=== PATIENT | female | born 1950 | race Caucasian/White ===

== ENCOUNTER 2017-02-16 20:33 | Inpatient (IN) ==
[2017-02-16 20:47] LABS: MANUAL DIFF NEEDED? NO
[2017-02-16 20:48] LABS: BASO% 0.4 % (0.0-0.8); EOS# 0.02 X1000 (0.0-0.7); EOS% 0.3 % (0.0-10.0); HEMATOCRIT 41.3 % (37.0-47.0); HEMOGLOBIN 13.3 g/dL (12.0-16.0); LYMPH% 16.2 % (20.5-51.1); MCH 28.8 PG (27-31); MCHC 32.2 g/dL (33-37); MCV 89.4 FL (81-99); MONO# 0.41 X1000 (0.11-0.59); MPV 9.8 FL (7.4-10.4); NEUT% 77.1 % (42.2-75.2); PLT 360 X1000 (130-400); RBC 4.62 XMIL (4.2-5.4)
[2017-02-16 20:54] LABS: URINE MICRO REVIEW NEEDED? NO; URINE SOURCE CLEAN CATCH
[2017-02-16 20:57] LABS: UR EPITHELIAL CELLS <10 /HPF (<10); URINE BACTERIA 1+ /HPF; URINE RBC <10 /HPF (<10); URINE WBC TNTC /HPF (<10)
[2017-02-16 20:58] LABS: BILIRUBIN URINE SMALL (NEGATIVE); BLOOD URINE NEGATIVE (NEGATIVE); COLOR YELLOW; GLUCOSE URINE NEGATIVE (NEGATIVE); LEUKOCYTES URINE LARGE (NEGATIVE); NITRITE URINE NEGATIVE (NEGATIVE); PROTEIN URINE 70 mg/dL (NEGATIVE); SP GRAVITY URINE 1.029; TURBIDITY URINE HAZY (CLEAR); URINE CULTURE NEEDED? YES; UROBILINOGEN URINE 4 mg/dL (NORMAL)
[2017-02-16 21:04] LABS: ALBUMIN 4.4 g/dL (3.5-5.0); CALCIUM 10.1 mg/dL (8.8-10.2); POTASSIUM 4.1 mmol/L (3.5-5.1); TOTAL BILIRUBIN 0.55 mg/dL (0.20-1.00); TOTAL PROTEIN 7.8 g/dL (6.3-8.3)
--- NOTE | 2017-02-16 22:36 | PROVIDER DOCUMENTATION ---
HPI-Abdominal Pain/GI Problem - General Chief Complaint: Abdominal Pain Stated Complaint: ABD PAIN, VOMITING Time Seen by Provider: 02/16/17 21:53 Source: patient Allergies/Adverse Reactions: Patient Allergies Allergy/AdvReac Type Severity Reaction Status Date / Time aspirin [From Percodan] Allergy SHORTNESS Verified 06/13/15 06:55 OF BREATH oxycodone HCl * Allergy SHORTNESS Verified 06/13/15 06:55 [From Percodan] OF BREATH oxycodone terephthalate * Allergy SHORTNESS Verified 06/13/15 06:55 [From Percodan] OF BREATH Home Medications: Home Medication List Medication Instructions Recorded Confirmed Last Taken Type Pantoprazole Sodium 40 mg PO DAILY 06/13/15 02/16/17 02/16/17 07:00 History Paroxetine HCl 40 mg PO DAILY 06/13/15 02/16/17 02/16/17 07:00 History Thyroxine 100 mcg PO DAILY 06/13/15 02/16/17 02/16/17 07:00 History Iron,Carbonyl/Ascorbic Acid [Fe C 1 each PO DAILY #30 tablet 06/15/15 02/16/17 02/16/17 07:00 Rx Tablet] Sucralfate [Carafate] 1 gm PO TID #90 tablet 06/15/15 02/16/17 02/16/17 Rx - History of Present Illness-ABD Nature of Presenting Problems: 66 YOwf UNDERWENT GASTRIC BY PASS (Rahul-En-y) [place] [address] CAESAR JENKINS. tHE SUBSEQUENTLY LOST 140 LBS AND DID WELL UNTIL ABOUT 48 HOURS AGO WHEN SHE DEVELOPED SEVERE , CRAMPING ABDOMINAL AND HAS BEEN UNABLE TO EAT OR KEEP FLUIDS DOWN. Abdominal Pain Onset Location: reports: RUQ Pain Radiation: reports: no radiation Quality of Pain: reports: cramping Severity in ED: reports: moderate Onset/Duration: reports: 2 days ago Timing: reports: still present Activities at Onset: reports: none Exposure to sick contacts?: No Modifying Factors: improves with: nothing Associated Symptoms: reports: anxiety, loss of appetite. denies: constipation Last BM: unsure Review of Systems - Adult - REVIEW OF SYSTEMS - ADULT Constitutional: reports: no symptoms reported, weight loss Eyes: reports: no symptoms reported Ears, Nose, Mouth & Throat: reports: no symptoms reported Cardiovascular: reports: no symptoms reported Respiratory: reports: no symptoms reported Gastrointestinal: reports: see HPI, other (S/P BOSSMAN) Genitourinary: reports: dysuria Musculoskeletal: reports: no symptoms reported Integumentary: reports: no symptoms reported Neurological: reports: no symptoms reported Psychiatric: reports: no symptoms reported Endocrine: reports: no symptoms reported Hematologic/Lymphatic: reports: no symptoms reported Allergic/Immunologic: reports: no symptoms reported Past History - Adult - PAST MEDICAL HISTORY-ADULT Review of Records: reports: Old Records Reviewed, Nursing Assessment Review, Medications Reviewed Major Childhood Illnesses: reports: denies history Cardiovascular: reports: HTN Respiratory: reports: asthma Gastrointestinal: reports: denies history, GERD, ulcer (at gastric bypass) Genitourinary: reports: denies history Musculoskeletal: reports: denies history Neurological: reports: denies history Psychiatric: reports: denies history Endocrine/Immune: reports: thyroid disorder - PRIOR SURGERIES/PROCEDURES Surgical/Procedure History: reports: cholecystectomy, hysterectomy, orthopedic ( extremity), gastric bypass, other (breast bx) Physical Exam-General - PHYSICAL EXAM-ADULT Initial Vital Signs Reviewed: Yes - CONSTITUTIONAL General Appearance: cachetic - EYES Eyes: PERRL/EOMI, pink conjunctivae - HEAD, EARS, NOSE, MOUTH & THROAT HENMT: normocephalic/atraumatic, moist mucous membranes, normal ENT inspection - NECK Neck: non-tender, full range of motion - RESPIRATORY Respiratory: chest non-tender, lungs clear, normal breath sounds, no pleuratic chest pain - CARDIOVASCULAR Cardiovascular: normal peripheral pulses, regular rate, rhythm, no edema - GASTROINTESTINAL (ABDOMEN) Abdominal Exam: non tender, soft, guarding, prominent aortic pulsations. negative: normal bowel sounds - LYMPHATIC Lymphatic: no adenopathy - MUSCULOSKELETAL Back Exam: normal inspection, no CVA tenderness Peripheral Pulses: radial (R): 3+, radial (L): 3+ - SKIN Integumentary: normal color, normal turgor - NEUROLOGIC Neurologic: grossly normal - PSYCHIATRIC Psych/Mental Status: normal mood/affect Progress - PLAN OF CARE/RESULTS Progress/Plan/Lab Results: Vital Signs - 8 hr 02/16/17 20:35 Temperature 98.4 F Pulse Rate 79 Respiratory Rate 16 Blood Pressure 148/98 O2 Sat by Pulse Oximetry 99 Laboratory Results - last 24 hr 02/16/17 02/16/17 02/16/17 20:40 20:40 20:45 WBC 6.81 RBC 4.62 Hgb 13.3 Hct 41.3 MCV 89.4 MCH 28.8 MCHC 32.2 L RDW Std Deviation 14.6 H Plt Count 360 MPV 9.8 Immature Gran % (Auto) 0.0 Neut % (Auto) 77.1 H Lymph % (Auto) 16.2 L [place] % (Auto) 6.0 Eos % (Auto) 0.3 Baso % (Auto) 0.4 Immature Gran # (Auto) 0.00 Neut # (Auto) 5.25 Lymph # (Auto) 1.10 L [place] # (Auto) 0.41 Eos # (Auto) 0.02 Baso # (Auto) 0.03 Sodium 144 Potassium 4.1 Chloride 99 Carbon Dioxide 24 L Anion Gap 21 BUN 22 Creatinine 1.0 H Estimated GFR/1.73 m2 55 BUN/Creatinine Ratio 22 Glucose 91 Calculated Osmolality 290 Calcium 10.1 Total Bilirubin 0.55 AST 18 ALT 9 L Alkaline Phosphatase 108 H Total Protein 7.8 Albumin 4.4 Globulin 3.4 Albumin/Globulin Ratio 1.3 Amylase 114 Lipase 32 Urine Source CLEAN CATCH Urine Color YELLOW Urine Turbidity HAZY Urine pH 6.0 Ur Specific [place] 1.029 Urine Protein 70 A Ur Glucose (Stick) NEGATIVE Ur Ketones (Stick) 80 A Urine Blood NEGATIVE Urine Nitrite NEGATIVE Urine Bilirubin SMALL A Urobilinogen Dipstick 4 A Urine Leukocytes LARGE A Urine WBC (Auto) TNTC A Urine RBC (Auto) <10 U Epithel Cells (Auto) <10 Urine Bacteria (Auto) 1+ Orders Category Date Time Status NPO Diet 02/16/17 20:[address] ABD/PELVIS W/ IV CONT ONLY [CT] Stat Exams 02/16/17 22:19 Ordered AMYLASE [CHEM] Stat Lab 02/16/17 20:40 Completed CBC WITH ELECTRONIC DIFF [HEME] Stat Lab 02/16/17 20:40 Completed COMPREHENSIVE METABOLIC PANEL [CHEM] Stat Lab 02/16/17 20:40 Completed LIPASE [CHEM] Stat Lab 02/16/17 20:40 Completed URINALYSIS W/POSS RFLX CULT-1 [URINALYSIS] Stat Lab 02/16/17 20:45 Completed URINE CULTURE [RM] Routine Lab 02/16/17 20:59 Received Result Diagrams: 02/16/17 20:40 02/16/17 20:40 - XRAY 1 XRAY Study: Chest Impression: Abnormal Comparison with other Films: changes noted XRAY Interpretation: bOTH PULMONARY EDEMA AND COPD - CT/MRI 1 Impression: Abnormal, Need Further Study, See EMR Report - CONSULTS/PCP/HOSPITALIST Notification #1 *Consult/PCP/Hospitalist*: Dr espitia Time Discussed: 11:15 Consult Disposition: Will see in ED Departure - Departure Time of Disposition Decision: 23:45 DIAGNOSIS: Abdominal pain Qualifiers: Abdominal location: epigastric Qualified Code(s): R10.13 - Epigastric pain Disposition: ADMITTED INPATIENT 09 Certified Medical Emergency: Emergent Condition: Good Referrals and Follow-Ups: Lm Tong MD [Primary Care Provider] - - Critical Care Note This patient required my direct & personal management of CC.: No
--- NOTE | 2017-02-17 01:23 | HISTORY AND PHYSICAL ---
REASON FOR ADMISSION: A 2 day history of persistent nausea, vomiting and epigastric pain. HISTORY OF PRESENT ILLNESS: Ms. Crissy Sahni is a 66-year-old lady with past medical history of hypertension, prior peptic ulcer disease, who comes in today complaining of intractable nausea and vomiting. She reports that she has also noted earlier today she developed epigastric pain, radiating to the right upper quadrant area, which is worse with eating or certain sudden movements. She denies any hematemesis, hematochezia or melenic stools or coffee grounds. As a matter of fact, her last bowel movement was earlier today and well formed and brown. She denies any abdominal distention. Denies any fever or chills. She reports that her epigastric pain is crampy in nature. It is intermittent, and no specific aggravating or relieving factors. Sometimes the pain radiates to her chest, a burning sensation caused when she burps or shortly after she vomits. She denies any genitourinary complaints, but she does complain of feeling thirsty. All in all, she estimates she has been vomiting no less than 20 times today. No use of [id number] medications such as NSAIDs. She admits to having a 4 pounds weight loss. She had a gastric bypass, Rahul-en-Y procedure, performed in 2004, and has lost a total of 140 pounds. REVIEW OF SYSTEMS: No neurological complaints. No new onset of arthralgia, rash, polyuria, polydipsia, heat intolerance complaints, and no cardiorespiratory complaints. Twelve system review is negative. Positive findings per HPI. ALLERGIES: Percodan. HOME MEDICATIONS: Include: Paxil 40 mg daily, Protonix 40 mg daily, levothyroxine 100 mcg daily. SURGICAL HISTORY: She has had bilateral shoulder surgery, bilateral carpal tunnel surgery, left hip replacement, and right knee replacement, gastric bypass surgery in 2004, and a cholecystectomy and a hysterectomy done. FAMILY HISTORY: Notable for pancreatic cancer and coronary artery disease. SOCIAL HISTORY: Does not smoke, drink, or use drugs. She lives with her , whom she takes care of. LAB WORK: CT of the abdomen and pelvis shows no acute intra-abdominal process. White count 6,000, hemoglobin and hematocrit 13 and 41, platelets 360,000 with 77% neutrophils. BUN is 20, creatinine 1.0, anion gap is 21, bicarb is normal. Hepatic function tests were only notable for alkaline phosphatase of 108. Lipase and amylase normal. Urinalysis showed 80 ketones, large leukocytes too numerous to count, 1+ bacteria. PHYSICAL EXAMINATION: VITAL SIGNS: Blood pressure is 148/98, heart rate 79, respirations 16, temperature is 98.4, oxygen saturation 99% on room air. GENERAL: She is a thin middle-aged woman, who appears older than stated age. She is alert and oriented to person, place, time with normal mood and affect. HEENT: Head is normocephalic, atraumatic. Eyes: CASSIDY. EOMI. She is anicteric, not pale. ENT and oropharynx exam is grossly normal. No oropharyngeal exudates or erythema. No signs of cyanosis. NECK: Supple. No JVD or carotid bruit. No thyromegaly. LYMPH NODE: Exam is negative. CHEST: Clear to auscultation with good bowel sounds in both lung ivy. CARDIOVASCULAR: First and second heart sounds heard. No gallops, murmurs or rubs. Rhythm is regular. ABDOMEN: Scaphoid, soft with epigastric tenderness, but no rebound or guarding. Also right mild right upper quadrant tenderness too. Aorta is palpable, but bruit heard. Bowel sounds are slightly hypoactive. No masses or organomegaly appreciated otherwise. RECTAL: Deferred. EXTREMITIES: No edema, clubbing or central cyanosis. Pulses distally in all extremities have good volume and are symmetrical. NEUROLOGICAL: Grossly normal. SKIN: Intact with no breakdown, lesions or erythema, but there is decreased skin turgor. MUSCULOSKELETAL: Grossly normal. ASSESSMENT: 1. Epigastric pain, could be peptic ulcer disease. Cannot rule out superior mesenteric artery syndrome, due to weight loss. 2. Dehydration from #1. 3. Hypertension. 4. Asymptomatic pyuria and bacteriuria. PLAN: At this time, we will aggressively hydrate patient. Start patient on PPIs. Consult GI, i.e. Dr. Bach, who is known to this patient, to perform endoscopy. There is no pathology noted. I will suggest upper GI series to rule out the possibility of an SMA syndrome, which is going to concerning for rapid weight loss. Otherwise, we will treat the patient symptomatically in the interim. I will hold off on giving antibiotics at this point in time. Patient denies any genitourinary symptoms so, antibiotics at this point are not indicated. However , if she would develop any urinary symptoms, we can initiate treatment. We will hold all oral medications in the interim pending evaluation. cc: MD Tra Perez MD Olakunle P. Akinsoto, MD MTDD
[2017-02-17] MEDS ORDERED: TYLENOL PO PRN (02:39)
[2017-02-17] MEDS ORDERED: ZOFRAN IV PRN (02:39)
[2017-02-17] MEDS: SODIUM CHLORIDE 0.9% INJ ONE (03:10)
[2017-02-17] MEDS: NS 1,000 ML IV SCH ×4 (03:10→23:28)
[2017-02-17] MEDS: PROTONIX IV SCH ×2 (03:10→14:45)
[2017-02-17] MEDS: MORPHINE IV PRN ×4 (03:19→23:27)
[2017-02-17 06:35] LABS: MANUAL DIFF NEEDED? NO
[2017-02-17 06:43] LABS: BASO% 0.4 % (0.0-0.8); EOS# 0.09 X1000 (0.0-0.7); EOS% 1.7 % (0.0-10.0); HEMATOCRIT 36.2 % (37.0-47.0); HEMOGLOBIN 11.5 g/dL (12.0-16.0); LYMPH# 1.44 X1000 (1.2-3.4); LYMPH% 26.4 % (20.5-51.1); MCH 28.5 PG (27-31); MCHC 31.8 g/dL (33-37); MCV 89.8 FL (81-99); MONO# 0.55 X1000 (0.11-0.59); MONO% 10.1 % (1.7-9.3); MPV 9.8 FL (7.4-10.4); NEUT% 61.4 % (42.2-75.2); PLT 290 X1000 (130-400); RBC 4.03 XMIL (4.2-5.4)
[2017-02-17 07:03] LABS: AGAP 15; ALBUMIN 3.8 g/dL (3.5-5.0); ALKALINE PHOSPHATASE 90 U/L (32-104); BUN 25 mg/dL (8-22); CALCIUM 9.2 mg/dL (8.8-10.2); CHLORIDE 105 mmol/L (98-107); COSMO 292; GOT 15 U/L (10-30); GPT 7 U/L (10-36); POTASSIUM 3.9 mmol/L (3.5-5.1); SODIUM 145 mmol/L (136-145); TCO2 25 mmol/L (25-35); TOTAL BILIRUBIN 0.41 mg/dL (0.20-1.00); TOTAL PROTEIN 6.9 g/dL (6.3-8.3)
--- NOTE | 2017-02-17 07:42 | Diag Imaging Result Doc PS360 ---
EXAM: CT ABD/PELVIS W/ IV CONT ONLY HISTORY: EPIGASTRIC PAIN, PROMINENT AORTIC PULSATION, TECHNIQUE: CT of the abdomen and pelvis with intravenous contrast and dose reduction (clarity.) ( COMMENT: There is an irregular opacity in the posterior costophrenic sulcus of the right lower lobe which is in part due to linear and in particular nodular in character. This is not calcified. It may very well be due to fibrosis. No previous studies are available for comparison however. There is fluid in the distal esophagus. This may be indicative of reflux. There are postsurgical changes in the stomach. Some calcification is present at the ostium of the right renal artery and there are two accessory renal arteries on the left. The mesenteric arteries are patent. There is no evidence of aneurysm. There is left nephrolithiasis with at least two separate stones, the larger in the lower pole measuring 5 mm in diameter. There is no evidence of hydronephrosis. There is some cortical scarring on the left which may be due to vascular disease. There are granulomata in the spleen and liver. There is been cholecystectomy. The pancreas is unremarkable in appearance. Some stool is present in the left colon. There is diverticulosis. No significant adenopathy or fluid collections are present. CT of the pelvis with intravenous contrast: Postsurgical changes are present in the distal small bowel. There is no evidence of appendicitis. There is severe sigmoid diverticulosis without evidence of diverticulitis. No abnormal fluid collections are present. There is a total hip prosthesis on the left. There are degenerative changes in the right hip with subchondral cysts posteriorly in the femoral head and in the acetabulum anteriorly and superiorly. There is vacuum joint phenomenon in the right sacroiliac joint and vacuum phenomenon is present in the L5-S1 disc space. IMPRESSION: Nephrolithiasis. Mild constipation. Diverticulosis coli. Electronically signed by Gutierrez Layton 02/17/2017 7:40 AM
--- NOTE | 2017-02-17 09:30 | PROGRESS NOTE ---
DATE: 02/17/2017 SUBJECTIVE: Ms. Sahni was admitted last night with abdominal pain. She has a large amount of WBCs and leukocytes, 1+ bacteria. So far, the urine culture did not show any growth. Abdominal CT shows presence of diverticulosis, but no definite evidence of diverticulitis. There was no evidence of appendicitis. I am going to put her on IV Levaquin today. Continue the rest of the medications. -3 cc: Lm Tong MD
[2017-02-17] MEDS: LEVAQUIN 500 MG/D5W 500 MG/100 ML IVPB IV SCH (10:01)
[2017-02-17] MEDS ORDERED: SODIUM CHLORIDE 0.9% 10 ML ONE (11:08)
--- NOTE | 2017-02-17 14:42 | CONSULTATION ---
DATE OF CONSULTATION: 02/17/2017 REASON FOR CONSULTATION: Abdominal pain. Nausea, vomiting, weight loss, history of peptic ulcer disease. HISTORY OF PRESENT ILLNESS: This is a 66-year-old, white female, who we have seen in 2014. She has a history of peptic ulcer disease and in May 2015, she had an EGD for evaluation of GI bleed. She was found to have a stomal ulcer, jejunal side with visible vessel treated. She has a history of gastric bypass in 2004. She had a repeat EGD in September 2015 that showed esophagitis and stenosis in the gastric anastomotic region. Patient reports onset of symptoms on Wednesday night. She reported epigastric pain, nausea, vomiting. She states she has vomited up to 40 times over the last several days. She describes the pain as cramping, sometimes sharp in epigastric and right side that goes up into the chest. She reports reflux and belching. She denies constipation or diarrhea. Denies blood in her stool or black stools. She takes Protonix at home. She denies recent NSAID use. She reports weight loss of about 8 pounds over the last 3 days. PAST MEDICAL HISTORY: Hypertension, peptic ulcer disease, hypothyroidism, GERD. PAST SURGICAL HISTORY: Gastric bypass. Bilateral shoulder surgery. Bilateral carpal tunnel surgery. Left hip replacement. Right knee replacement. Cholecystectomy. Hysterectomy. ALLERGIES: Aspirin causes shortness of breath. Oxycodone causes shortness of breath. MEDICATIONS AT HOME: Tramadol 50 mg every 8 hours as needed. Iron 1 daily. Levothyroxine 100 mcg daily. Carafate 1 g 3 times a day. Paroxetine 40 mg daily. Pantoprazole 40 mg daily. SOCIAL HISTORY: Denies tobacco or alcohol use. She lives at home with her who is bedridden. She cares for him. REVIEW OF SYSTEMS PER HPI: Generally: She reports some weakness. HEENT: Denies dizziness or lightheadedness. Cardiovascular: Reports some pain that moves from her abdomen up into her chest. Pulmonary: No reported shortness of breath or cough. GI: Denies constipation. Denies diarrhea. Denies blood in her stool or black stools. Reports nausea with episodes of vomiting up to 40 times over the last several days. Epigastric pain that moves to the right side and up into her chest. Complains of reflux and belching and has lost about 8 pounds over the last several days. PHYSICAL EXAMINATION: Vital Signs: Temperature 97.9 degrees, pulse 56, respirations 19, blood pressure 122/66. Generally: Patient is awake, alert, no acute distress. HEENT: Normocephalic, atraumatic. Pupils equal, round, reactive to light. Sclerae nonicteric. Cardiovascular: Regular rate and rhythm. Respiratory: Lung sounds essentially clear. Abdomen: Tenderness in the epigastric area. Otherwise, soft with positive bowel sounds. Extremities: No lower extremity edema noted. Pedal pulses present bilaterally. Neurologically : Cranial nerves 2- 12 grossly intact. Patient is awake, alert, oriented to person, place, and time. DIAGNOSTIC RESULTS/LABORATORY: Hematology: White count 5.45, hemoglobin 11.5, hematocrit 36.2, MCV 89.8. Platelets 290,000. Chemistry: Sodium 145, potassium 3.9, chloride 105, CO2 25, BUN 25, creatinine 0.9, glucose 76, total bilirubin 0.41, AST 15, ALT 7, alkaline phosphatase 90. Amylase 114, lipase 32. Abdominal and pelvis CT scan showing nephrolithiasis, mild constipation and diverticulosis. No evidence of appendicitis. No evidence of diverticulitis. ASSESSMENT AND PLAN: 1. Abdominal pain. 2. Nausea and vomiting. 3. History of peptic ulcer disease. 4. History of gastric bypass. 5. Urinary tract infection. Antibiotics started. PLAN: Continue supportive care. Continue PPI. Full liquid diet today and will hold nothing per oral after midnight and plan for an esophagogastroduodenoscopy tomorrow. Further plans will be made according to findings. I have discussed the esophagogastroduodenoscopy procedure, along with benefits and risks with the patient. She wishes to proceed. I have discussed this case with Dr. Bach. Thank you for this consultation. Dictated by BRIAN Fajardo for Tra Bach MD cc: BRIAN Ordoñez MD Amit V. Vora, MD MTDD
[2017-02-18] MEDS: PROTONIX IV SCH (02:18)
[2017-02-18] MEDS: SODIUM CHLORIDE 0.9% INJ ONE (02:18)
--- NOTE | 2017-02-18 10:17 | Diag Imaging Result Doc PS360 ---
EXAM: SHOULDER-RIGHT - 02/18/2017 HISTORY: pain Rt Shoulder TECHNIQUE: Right shoulder three views COMPARISON: None. FINDINGS: There are postsurgical changes of the apparent resection of the distal head of the clavicle. There is a metallic surgical anchor at the head of the humerus. There are possibly mild degenerative changes at the glenohumeral joint.. There is no fracture or dislocation identified. There is a small sclerotic lesion of the inferior glenoid. IMPRESSION: Postsurgical changes. Possible mild degenerative changes. No evidence of fracture or dislocation. Small sclerotic lesion at inferior glenoid. This likely represents a bone island, although other lesion such as metastasis is not excluded. Electronically signed by Louis Mason 02/18/2017 10:14 AM
[2017-02-18] MEDS: NS 1,000 ML IV SCH ×3 (10:49→21:05)
[2017-02-18] MEDS: LEVAQUIN 500 MG/D5W 500 MG/100 ML IVPB IV SCH (10:49)
[2017-02-18] MEDS ORDERED: MYLICON DROPS (DOSE) ONE (12:22)
[2017-02-18] MEDS ORDERED: DIPRIVAN 1% ONE (12:24)
[2017-02-18] MEDS ORDERED: SODIUM CHLORIDE 0.9% 10 ML ONE (12:50)
[2017-02-18] MEDS ORDERED: XYLOCAINE-MPF 2% ONE (13:28)
[2017-02-18] MEDS ORDERED: LR 500 ML ONE (13:28)
[2017-02-18] MEDS ORDERED: GOLYTELY PO ONE (14:00)
--- NOTE | 2017-02-18 14:49 | PROGRESS NOTE ---
DATE: 02/18/2017 SUBJECTIVE: Ms. Christie is doing better. Her repeat CBC is unremarkable, except for drop in hemoglobin from 13.3 to 11.5. She is going to get the EGD today, and her other lab values. Most of the lab values are normal. Electrolytes are normal. BUN is 25, creatinine 0.9, indicating mild dehydration. Urine showed too numerous leukocytes and WBCs. Culture is so far negative. She wants her right shoulder x-rayed as she has a lot of pain. -4 cc: Lm Tong MD
--- NOTE | 2017-02-18 15:16 | OPERATIVE NOTE ---
PROCEDURE DATE: 02/18/2017 PROCEDURE: 1. Esophagogastroduodenoscopy. 2. Foreign body removal and dilation. SCOPE USED: Olympus [id number]. MEDICATIONS: MAC as per Anesthesia. PREOPERATIVE DIAGNOSIS: Abdominal pain. Nausea, vomiting. POSTOPERATIVE DIAGNOSIS: 1. Foreign body stomach removed. 2. Stricture. Gastrointestinal anastomosis, dilated. HISTORY: This is a 66-year-old white female who has history of gastric bypass surgery, was admitted to hospital with complaint of abdominal pain and nausea and vomiting. EGD was done to identify the etiology and treat accordingly. DESCRIPTION OF PROCEDURE: Informed consent was obtained from the patient. The procedure, risks, benefits, alternatives were explained in layman's terms. She understood. All the pertinent questions were answered. The patient was brought to the endoscopy unit and was premedicated as per Anesthesia. After adequate sedation, while she was lying in left lateral position, the gastroscope was introduced into the posterior pharynx and advanced under direct vision into the esophagus. Esophagus in its entire length appeared to be normal. The GE junction was noted at about 40 cm from the incisor. The scope was passed through the esophagus into stomach. Stomach was examined in both straight and retroflexed view, which revealed moderate amount of gastric content which mostly was suctioned out. However, there were a couple of chunks of food noted that was large enough. It had to be removed with a basket. After that, the stomach was irrigated and cleansed. I did see stenosis or stricture at the gastrointestinal anastomosis. The area was hyperemic and edematous, but no distinct ulcer was seen. With gentle pressure, I was able to pass the scope through the stricture into the small bowel and examine the jejunal loop, which did not reveal any pathology. The scope was withdrawn back at the anastomosis where the stricture was dilated using TTS balloon from 10-12 mm. After dilation for 1 minute, the scope was withdrawn. Patient tolerated procedure with no complications noted. Patient was then transferred to the recovery area in a stable condition. IMPRESSION: 1. Stricture. 2. Gastrointestinal anastomosis dilated. 3. Foreign body stomach removed. RECOMMENDATION: I would continue her on proton pump inhibitor and add Carafate. Advised her to continue full liquid diet for at least 1 week and as the edema relieves, the size of the anastomosis will improve, and she be able to advance her diet slowly, but I would still advise her to avoid large solid food such as grilled chicken or steak, etc. cc: MD Lm Tolliver MD
[2017-02-18] MEDS: MORPHINE IV PRN (20:19)
[2017-02-18] MEDS: CARAFATE LIQUID PO SCH (20:35)
[2017-02-19] MEDS: CARAFATE LIQUID PO SCH ×2 (01:51→08:28)
[2017-02-19] MEDS ORDERED: PRILOSEC PO SCH ×2 (07:00)
[2017-02-19 08:14] VITALS: BP 117/61
[2017-02-19] MEDS: NS 1,000 ML IV SCH (08:28)
[2017-02-19] MEDS: LEVAQUIN 500 MG/D5W 500 MG/100 ML IVPB IV SCH (10:52)
--- NOTE | 2017-02-19 12:50 | PROGRESS NOTE ---
DATE: 02/19/2017 SUBJECTIVE: Patient states she is feeling better. She is tolerating her full liquid diet. No reported nausea or vomiting. Abdominal pain has improved. She does report that she has not had a bowel movement. PHYSICAL EXAMINATION: Vital Signs: Temperature 98.6 degrees, pulse 53, respirations 19, blood pressure 117/61. General: Patient is awake, alert, no acute distress. HEENT: Normocephalic, atraumatic. Pupils equal, round, reactive to light. Respiratory: Lung sounds essentially clear. Cardiovascular: Regular rate and rhythm. Abdomen: Soft, nontender. Positive bowel sounds. LABORATORY RESULTS: Hematology on 02/17/2017: White blood cells 5.45, hemoglobin 11.5, hematocrit 36.2, MCV 89.8. Chemistry: Sodium 145, potassium 3.9, chloride 105 , CO2 of 25, BUN 25, creatinine 0.9, total bilirubin 0.41, AST 15, ALT 7, alkaline phosphatase 90. ASSESSMENT AND PLAN: 1. Nausea and vomiting, improved. 2. Abdominal pain, improved. 3. History of gastric bypass. 4. Esophagogastroduodenoscopy findings consistent with a stricture at gastrointestinal anastomosis site, which was dilated, foreign body in the stomach removed. RECOMMENDATIONS: Continue proton pump inhibitor and continue Carafate at home, she has a prescription. Recommended full liquid diet for at least 1 week, and then if symptoms allow, advance to a GI soft diet. We will see her in the office in approximately 2 weeks or sooner if needed. She voices understanding of this plan. I have discussed this case with Dr. Bach. Dictated by BRIAN Fajardo for Tra Bach MD cc: BRIAN Ordoñez MD Amit V. Vora, MD [facility]ENTER[facility]arsha
--- NOTE | 2017-02-19 13:48 | DISCHARGE SUMMARY ---
ADMISSION DATE: 02/16/2017 DISCHARGE DATE: 02/19/2017 HISTORY AND HOSPITAL COURSE: Ms. Sahni, who is a 66-year-old white female, was admitted with abdominal pain. Laboratory data in the hospital, urine culture, urine clean catch revealed mixed lesly. X-ray of the shoulder on the right side revealed postsurgical changes as well as osteoarthritis. Dr. Isreal morris did an EGD, which he found foreign bodies, which were removed, and he dilated the gastrointestinal anastomosis, as well there was a stricture. There was no apparent bleeding, and his recommendation was to continue the proton pump inhibitor and Carafate, which we will continue. Other lab data had revealed CBC unremarkable. Electrolytes were normal. BUN was 25 and creatinine 0.9 indicating mild dehydration. Urinalysis revealed too numerous WBCs and large leukocytes, 1+ bacteria. She was placed on IV Levaquin, which I gave her the prescription today. She will be discharged home. PLAN: I will see her in the office in about 2 weeks. FINAL DIAGNOSES: 1. Abdominal pain. 2. Mild urinary tract infection. 3. Gastrointestinal anastomosis with stricture gastric, gastrointestinal area opening which had a stricture in it, was dilated. 4. She had a foreign body in the stomach also. cc: Lm Tong MD
--- NOTE | 2017-02-23 05:22 | PROGRESS NOTE ---
DATE: 02/19/2017 Ms. Sahni had a foreign body in the stomach which was removed by Dr. Bach. He also dilated the narrowing at the gastrointestinal junction. She is doing much better. Shoulder x-ray on the right side showed some degenerative changes and arthritis, otherwise, she is doing better. She is requesting to go home. We will discharge her. Urine shows mixed lesly. -4 cc: Lm Tong MD
== END 2017-02-19 12:18 | disposition home or self-care (01) ==
LOC: ED 20:33 → SUATTDRO 23:58 → 3N 23:58
PROVIDERS: ADMIT Internal Medicine; ATTEND Internal Medicine

== ENCOUNTER 2019-03-02 16:23 | Inpatient (IN) ==
[2019-03-02] MEDS ORDERED: SODIUM CHLORIDE 0.9% INJ ONE (17:00)
[2019-03-02] MEDS ORDERED: NS 500 ML IV ONE (17:00)
[2019-03-02] MEDS ORDERED: PROTONIX IV ONE (17:00)
[2019-03-02 17:10] LABS: BASO# 0.03 X1000 (0.0-0.2); BASO% 0.3 % (0.0-0.8); EOS# 0.09 X1000 (0.0-0.7); HEMATOCRIT 31.6 % (37.0-47.0); HEMOGLOBIN 9.7 g/dL (12.0-16.0); IMM GRAN# 0.02 X1000 (0.0-0.04); IMM GRAN% 0.2 % (0.0-0.5); LYMPH# 1.99 X1000 (1.2-3.4); LYMPH% 21.9 % (20.5-51.1); MCH 24.4 PG (27-31); MCHC 30.7 g/dL (33-37); MCV 79.6 FL (81-99); MONO# 0.38 X1000 (0.11-0.59); MONO% 4.2 % (1.7-9.3); MPV 9.7 FL (7.4-10.4); NEUT# 6.58 X1000 (1.4-6.5); NEUT% 72.4 % (42.2-75.2); PLT 404 X1000 (130-400); RBC 3.97 XMIL (4.2-5.4); WBC 9.09 X1000 (4.8-10.8)
[2019-03-02 17:17] LABS: INR 0.98; PROTIME 13.8 Seconds (11.0-16.0)
[2019-03-02 17:18] LABS: PTT 27.4 Seconds (22.3-41.8)
[2019-03-02 17:26] LABS: AGAP 11; ALB/GLOB RATIO 1.4; ALBUMIN 4.1 g/dL (3.5-5.0); ALKALINE PHOSPHATASE 106 U/L (32-104); BUN 13 mg/dL (8-22); CALCIUM 9.3 mg/dL (8.8-10.2); CHLORIDE 104 mmol/L (98-107); COSMO 279; CREATININE 0.7 mg/dL (0.5-0.9); ESTIMATED GFR > 60; GLUCOSE 88 mg/dL (70-104); GOT 19 U/L (10-30); GPT 8 U/L (10-36); SODIUM 140 mmol/L (136-145); TCO2 25 mmol/L (25-35); TOTAL BILIRUBIN 0.49 mg/dL (0.20-1.00)
[2019-03-02 17:35] LABS: URINE SOURCE CLEAN CATCH
[2019-03-02 17:38] LABS: BILIRUBIN URINE NEGATIVE (NEGATIVE); BLOOD URINE NEGATIVE (NEGATIVE); COLOR YELLOW; GLUCOSE URINE NEGATIVE (NEGATIVE); KETONE URINE 20 mg/dL (NEGATIVE); LEUKOCYTES URINE MODERATE (NEGATIVE); NITRITE URINE NEGATIVE (NEGATIVE); PROTEIN URINE TRACE mg/dL (NEGATIVE); SP GRAVITY URINE 1.023; TURBIDITY URINE CLEAR (CLEAR); UR EPITHELIAL CELLS <10 /HPF (<10); URINE BACTERIA 1+ /HPF; URINE RBC <10 /HPF (<10); URINE WBC 20-40 /HPF (<10); UROBILINOGEN URINE 8 mg/dL (NORMAL)
--- NOTE | 2019-03-02 17:49 | Diag Imaging Result Doc PS360 ---
CHEST-PORTABLE - 03/02/2019 INDICATION: vomiting COMPARISON: 06/16/2018 FINDINGS: The lungs are normally expanded and clear. Heart size and mediastinal contours are normal. No pneumothorax or pleural effusion. Stable calcified granuloma in the AP window. IMPRESSION: Negative exam. Electronically signed by Pepito Urbina 03/02/2019 5:46 PM
--- NOTE | 2019-03-02 18:33 | PROVIDER DOCUMENTATION ---
This chart was entered by Tarah Escobedo Scribe, acting as scribe for Jorge Grimes MD. HPI-Abdominal Pain/GI Problem - General Chief Complaint: GI Bleed Stated Complaint: VOMITING BLOOD Time Seen by Provider: 03/02/19 16:52 Source: patient Allergies/Adverse Reactions: Patient Allergies Allergy/AdvReac Type Severity Reaction Status Date / Time oxycodone HCl * Allergy SHORTNESS Verified 06/16/18 17:39 [From Percodan] OF BREATH oxycodone terephthalate * Allergy SHORTNESS Verified 06/16/18 17:39 [From Percodan] OF BREATH promethazine [From Phenergan] Allergy Unknown Verified 03/02/19 16:44 aspirin [From Percodan] AdvReac bleeding Verified 06/16/18 17:39 ulcers Home Medications: Home Medication List Medication Instructions Recorded Confirmed Last Taken Type Pantoprazole Sodium 40 mg PO DAILY 06/13/15 02/16/17 02/16/17 07:00 History Paroxetine HCl 40 mg PO DAILY 06/13/15 02/16/17 02/16/17 07:00 History Thyroxine 100 mcg PO DAILY 06/13/15 02/16/17 02/16/17 07:00 History Iron,Carbonyl/Ascorbic Acid [Fe C 1 each PO DAILY #30 tablet 06/15/15 02/17/17 Unknown Rx Tablet] Tramadol HCl 50 mg PO Q8HR PRN 02/17/17 02/17/17 02/16/17 12:00 History Acetaminophen [Tylenol] 650 mg PO Q6H PRN PRN #0 tablet 02/19/17 Unknown Rx Levofloxacin [Levaquin] 500 mg PO DAILY #5 tablet 02/19/17 Unknown Rx Sucralfate [Carafate] 1 gm PO BID #30 tablet 02/19/17 Unknown Rx Levofloxacin [Levaquin] 750 mg PO DAILY #7 tab 06/16/18 Unknown Rx Metronidazole [Flagyl] 500 mg PO TID #21 tab 06/16/18 Unknown Rx Promethazine [Phenergan] 25 mg PO Q6H PRN PRN #100 tab 06/16/18 Unknown Rx Hydrocodone/Acetaminophen [[place] 1 ea PO Q6-8H PRN PRN #20 tab 12/07/18 Unknown Rx 5-325 Tablet] Ondansetron Odt [Zofran 4 mg Odt] 4 mg PO Q6H PRN PRN #10 tab 12/07/18 Unknown Rx - History of Present Illness-ABD Nature of Presenting Problems: Patient is a 68 year old female who presents with nausea and vomiting blood since last night. Patient states history of bleeding ulcers. Denies rectal bleeding and abdominal pain. States her GI doctor is Dr. Bach. Quality of Pain: reports: none Severity in ED: reports: mild Onset/Duration: reports: last night Timing: reports: still present, getting worse Activities at Onset: reports: light activity Associated Symptoms: reports: nausea, vomiting (blood) Last BM: this morning Dark Stools Present?: reports: none noticed Rectal Bleeding: reports: none Emesis Description: reports: red blood Bruising or Bleeding Gums?: No Similar Symptoms Previously?: Yes Recently seen or treated by another doctor?: No Review of Systems - Adult - REVIEW OF SYSTEMS - ADULT Constitutional: reports: no symptoms reported. denies: chills, fever, fatique Eyes: reports: no symptoms reported Ears, Nose, Mouth & Throat: reports: no symptoms reported Cardiovascular: reports: no symptoms reported Respiratory: reports: no symptoms reported Gastrointestinal: reports: see HPI, hematemesis, nausea. denies: abdominal pain, diarrhea, rectal bleeding Genitourinary: reports: no symptoms reported Musculoskeletal: reports: no symptoms reported Integumentary: reports: no symptoms reported Neurological: reports: no symptoms reported. denies: dizziness/vertigo, headache/migraines, syncope Psychiatric: reports: no symptoms reported Endocrine: reports: no symptoms reported Hematologic/Lymphatic: reports: no symptoms reported Allergic/Immunologic: reports: no symptoms reported All Other Systems: Reviewed and Negative Past History - Adult - PAST MEDICAL HISTORY-ADULT Review of Records: reports: Old Records Reviewed, Nursing Assessment Review, Medications Reviewed, Social history reviewed & non-contributory. Major Childhood Illnesses: reports: denies history Cardiovascular: reports: HTN Respiratory: reports: asthma Gastrointestinal: reports: denies history, GERD, ulcer (at gastric bypass) Obstetrical/Gynecological: reports: denies history Genitourinary: reports: denies history Musculoskeletal: reports: denies history Neurological: reports: denies history Psychiatric: reports: denies history Endocrine/Immune: reports: thyroid disorder Other Conditions: reports: denies history - PRIOR SURGERIES/PROCEDURES Surgical/Procedure History: reports: cholecystectomy, hysterectomy, orthopedic (extremity), gastric bypass, other (breast bx) - IMMUNIZATION STATUS Childhood Immunizations: See Nurse Assessment Flu Vaccine: See Nurse Assessment - FAMILY HISTORY Family History: reviewed, not pertinent - SOCIAL HISTORY Smoking: cigarettes (former) Substance Use: denies Physical Exam-General - PHYSICAL EXAM-ADULT Initial Vital Signs Reviewed: Yes - CONSTITUTIONAL General Appearance: alert, no apparent distress. negative: lethargic, slow to respond - HEAD, EARS, NOSE, MOUTH & THROAT HENMT: normocephalic/atraumatic. negative: angioedema, hearing deficit - RESPIRATORY Respiratory: chest non-tender, lungs clear, normal breath sounds. negative: crackles, rhonchi, wheezing - CARDIOVASCULAR Cardiovascular: normal peripheral pulses, regular rate, rhythm. negative: tachycardia, systolic murmur - GASTROINTESTINAL (ABDOMEN) Abdominal Exam: normal bowel sounds, non tender, soft. negative: guarding, rebound - MUSCULOSKELETAL Extremity: non-tender, normal inspection. negative: deformity, erythema - SKIN Integumentary: normal color, normal turgor, warm/dry. negative: cyanosis, ecchymosis, erythema, jaundice - NEUROLOGIC Neurologic: grossly normal. negative: aphasia, facial droop - PSYCHIATRIC Psych/Mental Status: normal mood/affect, oriented x 3. negative: anxious Progress - PLAN OF CARE/RESULTS Progress/Plan/Lab Results: Vital Signs - 8 hr 03/02/19 16:27 Temperature 98.7 F Pulse Rate 62 Respiratory Rate 20 Blood Pressure 145/88 O2 Sat by Pulse Oximetry 99 Result Diagrams: 03/02/19 16:56 03/02/19 16:56 - CONSULTS/PCP/HOSPITALIST Notification #1 *Consult/PCP/Hospitalist*: Dr. Bach Time Discussed: 17:46 Reason/Comments: Dr. Grimes consulted with Dr. Bach about patient. Consult Disposition: other (will consult on patient. admit to hospitalist) Departure - Departure Date of Disposition Decision: 03/02/19 Time of Disposition Decision: 18:00 DIAGNOSIS: Upper gastrointestinal bleeding Disposition: ADMITTED INPATIENT 09 Certified Medical Emergency: Emergent Condition: Serious Referrals and Follow-Ups: Lm Tong MD [Primary Care Provider] - - Critical Care Note This patient required my direct & personal management of CC.: Yes Total Time (mins): 33 Critical Care Statement: This patient required my direct personal management to treat or rule out processes, the absence of which, could potentiallly result in sudden, clinically significant life or limb threatening deterioration. Attestation - Physician/ MICKI Attestation The physician spent face to face time with patient:: Yes Advanced Practice Provider documentation review:: Supervising physician onsite and consulted in the evaluation and care of this patient. The physician did have a face to face encounter with the patient. This chart was documented by the indicated scribe, (Tarah Escobedo Scribe) and accurately reflects the services I performed and decisions made by me, Jorge Grimes MD, as attested by the provider's signature.
--- NOTE | 2019-03-02 20:17 | HISTORY AND PHYSICAL ---
CHIEF COMPLAINT: Throwing up blood. PRESENT ILLNESS: The patient is a 68-year-old white female with a past history of peptic ulcer disease. She started having nausea and vomiting on Wednesday and has gotten progressively worse until she was throwing up blood even a little bit yesterday. She talked with her associate professor of mathematics Dr. Bach today, and he recommended that she come to the emergency room to be admitted. PAST MEDICAL HISTORY: Past history includes hypothyroidism, peptic ulcer disease, bilateral cataract surgery, total hysterectomy, carpal tunnel surgery, bilateral shoulder surgery, hip replacement, right knee replacement, gastric bypass surgery in 2004, and a cholecystectomy. FAMILY HISTORY: Noted for pancreatic cancer and coronary artery disease. There is also scleroderma with 1 daughter. SOCIAL HISTORY: Does not use alcohol or tobacco anymore but did smoke at one time. She is allergic to Percocet and Phenergan. REVIEW OF SYSTEMS: Neurological: Has had some headache over the last few days. It is more like a tension headache. Denies seizures, visual problems, hearing problems. Pulmonary: Denies cough, wheezing, dyspnea. Cardiovascular: Denies chest pain, heart palpitations, PND, orthopnea. GI: Has had nausea with abdominal pain, has had some dark stool and has thrown up some blood. : Denies any difficulty with urination though urinalysis does show pyuria. Endocrine: Has had some hypothyroidism but no other endocrine problems. HOME MEDICATIONS: Include levothyroxine 100 mcg daily, hydrocodone ([place]) 5/325. She takes q.6- 8 hours p.r.n. pain. Zofran ODT 4 mg p.o. q.6 hours p.r.n. nausea, Protonix 40 mg daily, Paxil 40 mg daily and Carafate 1 g p.o. t.i.d. She does tell me that she had gotten a lax in taking her Protonix and her Carafate recently. FAMILY HISTORY: She has 3 children and 4 grandchildren. PHYSICAL EXAMINATION: Vital Signs: Blood pressure is 146/87, respirations are 18, pulse 105, oxygen saturation is 96% on room air, temperature is 98.7 degrees Fahrenheit. HEENT: She is normocephalic. EOMS intact. PERRLA. Throat clear. Fundi benign. Neck: Supple without thyromegaly, lymphadenopathy, or carotid bruits. Lungs: Clear to auscultation and percussion without rhonchi, rales, or wheezes. Heart: Regular rate and rhythm to sinus tachycardia without murmurs, gallops, or friction rubs. Abdomen: Soft with tenderness in the epigastric area. Breast Exam: Deferred. Pelvic exam: Deferred. Rectal exam: Deferred. Neurological: Cranial nerves 2 through 12 intact grossly. Sensory and motor intact. Reflexes 1+ all. LABORATORY DATA: Shows white count of 9090, hemoglobin 9.7, hematocrit 31.6, platelet count 404,000. Electrolytes were essentially normal. Urinalysis showed 20 to 40 WBCs/HPF. Culture is pending. ASSESSMENT: 1. Upper gastrointestinal bleed. 2. Urinary tract infection. 3. Depression improved with medication. 4. Anemia. PLAN: We will admit. We will draw serial hemoglobins and hematocrits. GI has been by and has ordered Protonix 40 mg IV q.12 hours and Carafate 1 g p.o. t.i.d. I will start antibiotics because of the possible urinary tract infection. cc: Sebas Bean Jr, MD
[2019-03-02] MEDS ORDERED: FLEXERIL PO ONE (20:26)
[2019-03-02] MEDS: CARAFATE LIQUID PO SCH (22:06)
[2019-03-02] MEDS: ROCEPHIN 1 GM in NS 50 ML IV SCH (22:06)
[2019-03-03] MEDS ORDERED: PROTONIX IV SCH (06:00)
[2019-03-03] MEDS ORDERED: SODIUM CHLORIDE 0.9% INJ PRN (06:00)
[2019-03-03] MEDS ORDERED: DIPRIVAN 1% ONE (08:26)
[2019-03-03] MEDS ORDERED: FENTANYL ONE (08:27)
[2019-03-03] MEDS ORDERED: XYLOCAINE-MPF 2% ONE (08:29)
[2019-03-03] MEDS: ROCEPHIN 1 GM in NS 50 ML IV SCH ×2 (09:15→22:13)
[2019-03-03] MEDS: CARAFATE LIQUID PO SCH ×3 (09:16→16:41)
[2019-03-03] MEDS: PAXIL PO SCH (09:35)
[2019-03-03] MEDS: SYNTHROID PO SCH (09:40)
--- NOTE | 2019-03-03 12:03 | PROGRESS NOTE ---
DATE: 03/03/2019 Ms. Sahni was admitted yesterday because of GI bleeding. Her hemoglobin is down to 9 g. We will repeat another CBC in the morning. Her electrolyte status is normal. She has lost a significant amount of weight. Urinalysis revealed 20 to 40 WBCs. Culture so far has not revealed any growth. Chest x-ray was negative. She had an EGD done. The results are not back, however, she was told that she had esophageal stricture and it was dilated. She is on omeprazole. She has a bony prominence on the sacral area, which is very tender. I am going to order a lumbosacral spine x- ray on her. -4 cc: MD Sebas Perez Jr, MD
--- NOTE | 2019-03-03 12:21 | Diag Imaging Result Doc PS360 ---
EXAM: COCCYX/SACRUM 03/03/2019 HISTORY: severe pain swelling. TECHNIQUE: Coccyx and sacrum three views COMMENT: There is generalized osteopenia. There are degenerative changes in the symphysis pubis. There is a hip arthroplasty on the left. No evidence of acute fracture or subluxation is present. There is degenerative disc disease at the L5-S1 level with posterior osteophyte formation and facet arthropathy bilaterally. IMPRESSION: No evidence of acute bony disease. Electronically signed by Gutierrez Layton 03/03/2019 12:18 PM
--- NOTE | 2019-03-03 13:37 | OPERATIVE NOTE ---
PROCEDURE DATE: 03/03/2019 PROCEDURE: Esophagogastroduodenoscopy and gastric outlet dilation. MEDICATIONS: Monitored anesthesia care as per Anesthesia. SCOPE USED: Pentax gastroscope. PREOPERATIVE DIAGNOSIS: Acute gastrointestinal bleed, nausea, vomiting and anemia. POSTOPERATIVE DIAGNOSIS: Gastritis and gastric outlet obstruction/stricture dilated. HISTORY: This is a 68-year-old white female who has history of gastric bypass surgery. She has had history of bleeding ulcer before she was admitted to the hospital with history of hematemesis, coffee-grounds emesis, nausea and vomiting, was found to be mildly anemic. EGD was done for diagnostic as well as therapeutic purposes. DESCRIPTION OF PROCEDURE: Informed consent was obtained from the patient. The procedure, risks, benefits, alternatives were explained in layman's terms. She understood. All her pertinent questions were answered. Patient was brought to the endoscopy unit and was premedicated as per Anesthesia. After adequate sedation, while she was lying in left lateral position, the gastroscope was introduced into the posterior pharynx and advanced under direct vision into the esophagus. Esophagus in its entire length appeared to be normal. No esophagitis, webs, rings, varices were seen. The scope was then passed through the esophagus into the stomach. Stomach was examined which revealed a small gastric pouch. There was a severe stricture noted at the gastric outlet that is the anastomosis between the stomach and the jejunum. The scope could not be passed through the anastomosis. There was mild hyperemia noted around the anastomosis but no distinct ulcer was noted. I used a TTS balloon and dilated the stricture up to 10 mm, and then I was able to advance the scope into the jejunum. I was able to advance the scope all the way up to the jejunum as far as I could but did not see any evidence of active bleeding or stigmata of recent bleed. The jejunum at the anastomosis did not show any evidence of anastomotic ulcer or marginal ulcer. I went ahead and dilated the anastomosis further up to 12 mm for 60 seconds and a small amount of heme was noted but no other complication was noted. The scope was then withdrawn. Patient tolerated the procedure well. No complications noted. Patient was then transferred to the recovery area in stable condition. IMPRESSION: 1. Mild gastritis at the gastrojejunal anastomosis. 2. Stricture gastrojejunostomy anastomosis. 3. Gastric outlet dilation with a TTS balloon. RECOMMENDATIONS: 1. I would continue on PPI, Prilosec 40 mg every day. 2. Continue Carafate 1 g p.o. t.i.d. before meals. 3. Recheck hemoglobin and hematocrit, transfuse if necessary. 4. From GI perspective, she can be discharged if she tolerates p.o. and I will see her back in the office after a few weeks. She can call for appointment. cc: MD Sebas Tolliver Jr, MD
[2019-03-04] MEDS: SYNTHROID PO SCH (06:19)
[2019-03-04 06:53] LABS: BASO# 0.03 X1000 (0.0-0.2); BASO% 0.6 % (0.0-0.8); EOS# 0.24 X1000 (0.0-0.7); EOS% 5.1 % (0.0-10.0); HEMATOCRIT 31.2 % (37.0-47.0); HEMOGLOBIN 9.3 g/dL (12.0-16.0); LYMPH# 1.89 X1000 (1.2-3.4); LYMPH% 40.3 % (20.5-51.1); MCHC 29.8 g/dL (33-37); MCV 80.6 FL (81-99); MONO# 0.43 X1000 (0.11-0.59); MONO% 9.2 % (1.7-9.3); MPV 9.9 FL (7.4-10.4); NEUT% 44.8 % (42.2-75.2); PLT 341 X1000 (130-400); RBC 3.87 XMIL (4.2-5.4); RDW 17.2 % (11.5-14.5); WBC 4.69 X1000 (4.8-10.8)
[2019-03-04] MEDS ORDERED: PRILOSEC PO SCH (07:00)
[2019-03-04] MEDS: CARAFATE LIQUID PO SCH ×2 (07:57→09:47)
[2019-03-04] MEDS: ROCEPHIN 1 GM in NS 50 ML IV SCH (09:47)
[2019-03-04] MEDS: PAXIL PO SCH (09:47)
[2019-03-04 12:12] VITALS: BP 127/74
--- NOTE | 2019-03-04 12:41 | PROGRESS NOTE ---
DATE: 03/04/2019 SUBJECTIVE: Patient doing well. She says the tailbone pain has improved overnight and her x-rays are negative on that. She has been eating some. We reviewed the EGD results from Dr. Bach which showed gastritis at the gastrojejunal anastomosis site and stricture at the gastrojejunostomy anastomosis and where he had performed a gastric outlet dilation. His recommendations were reviewed as well. OBJECTIVE: Vital signs: Afebrile. Vital signs stable. Cardiovascular: Regular rate and rhythm without murmur. Lungs: Clear. Abdomen: Nontender and nondistended. Extremities: No calf tenderness, cords or edema. LABORATORY DATA: Urine culture shows mixed lelsy and no true infection. White count 4.69, hemoglobin stable at 9.3, platelets 341,000. ASSESSMENT: 1. Recent upper gastrointestinal bleed with improvement status post EGD. 2. Gastritis. 3. Stricture at the gastroesophageal junction where she had previous gastric bypass surgery. 4. History of gastric bypass. 5. Contaminated urine, no true infection. 6. Depression. 7. Hypothyroidism. 8. Coccygeal pain, improved. PLAN: Advised heidi feltcher for the latter. We will discharge home on ferrous sulfate 325 mg b.i.d., Prilosec 40 mg p.o. daily for 3 months, Carafate 1 g p.o. t.i.d. for 1 month. Avoidance of NSAIDs and anti-reflux measures discussed. She will follow up with Dr. Tong within about 5 to 7 days in his office and she will follow up with Dr. Bach within a month. She will resume her Synthroid and Paxil as she was on it at home. cc: MD Sebas Kaur Jr, MD
--- NOTE | 2019-03-07 07:46 | DISCHARGE SUMMARY ---
ADMISSION DATE: 03/02/2019 DISCHARGE DATE: 03/04/2019 HISTORY: Ms. Sahni was admitted with upper GI bleeding. She had lost some weight. Laboratory Data in the hospital: Chest x-ray was negative. She was found to have esophageal stricture, some gastritis duodenitis, and some gastric outlet obstruction. Stricture was dilated. She had history of gastric bypass surgery in the past. LABORATORY DATA: Revealed hemoglobin was 9.7 and last hemoglobin was 9.3. Electrolytes were normal. Creatinine and BUN were unremarkable. Liver enzymes are normal. Alkaline phosphatase was slightly elevated. Urinalysis revealed 1+ bacteria. HOSPITAL COURSE: She was admitted from the Emergency Room later on while she was seen by Dr. Bach who did the EGD and found that she had esophageal strictures and gastritis. No apparent evidence of bleeding was noted. She was placed on Prilosec, and was discharged by Dr. Ricks. FINAL DIAGNOSIS: Esophageal stricture, gastritis, and GI bleed. FOLLOW UP: She will be seen in the office in about 7 days. cc: MD Sebas Perez Jr, MD MTDD
== END 2019-03-04 12:56 | disposition home or self-care (01) | DRG 378 ==
LOC: ED 16:23 → 4N 20:49
PROVIDERS: ADMIT Emergency Medicine; ATTEND Internal Medicine
CPT/HCPCS: 71010; 71045; 72220; 80053; 81001; 85018; 85025; 85610; 85730; 86850; 86900; 86901; 87088; 96361; 96374; 99285; 99291; A9270; C9113; J0696; J3010; J7040; S0164

== ENCOUNTER 2019-09-23 16:56 | Observation (INO) ==
[2019-09-23 18:03] LABS: BASO# 0.03 X1000 (0.0-0.2); BASO% 0.5 % (0.0-0.8); EOS# 0.13 X1000 (0.0-0.7); EOS% 2.2 % (0.0-10.0); HEMOGLOBIN 10.2 g/dL (12.0-16.0); LYMPH# 1.86 X1000 (1.2-3.4); LYMPH% 31.5 % (20.5-51.1); MCH 24.8 PG (27-31); MCV 82.7 FL (81-99); MONO% 6.8 % (1.7-9.3); MPV 9.4 FL (7.4-10.4); NEUT# 3.49 X1000 (1.4-6.5); PLT 379 X1000 (130-400); RBC 4.11 XMIL (4.2-5.4); WBC 5.91 X1000 (4.8-10.8)
[2019-09-23 18:09] LABS: INR 1.05; PROTIME 13.8 Seconds (11.0-16.0); PTT 28.2 Seconds (22.3-41.8)
--- NOTE | 2019-09-23 18:19 | Diag Imaging Result Doc PS360 ---
CHEST-2 VIEWS - 09/23/2019 INDICATION: chest pain COMPARISON: None FINDINGS: The lungs are normally expanded and clear. Heart size and mediastinal contours are normal. No pneumothorax or pleural effusion. IMPRESSION: Negative exam. Electronically signed by Pepito Urbina 09/23/2019 6:17 PM
[2019-09-23 18:26] LABS: AGAP 11; ALB/GLOB RATIO 1.6; ALBUMIN 3.9 g/dL (3.5-5.0); ALKALINE PHOSPHATASE 117 U/L (32-104); BUN 13 mg/dL (8-22); CALCIUM 8.7 mg/dL (8.8-10.2); CHLORIDE 105 mmol/L (98-107); CK PROFILE 68 U/L (24-173); COSMO 279; CREATININE 0.7 mg/dL (0.5-0.9); ESTIMATED GFR > 60; GLUCOSE 95 mg/dL (70-104); GOT 17 U/L (10-30); GPT 9 U/L (10-36); POTASSIUM 4.3 mmol/L (3.5-5.1); SODIUM 140 mmol/L (136-145); TCO2 24 mmol/L (25-35); TOTAL PROTEIN 6.4 g/dL (6.3-8.3)
--- NOTE | 2019-09-23 20:26 | EKG Report ---
Test Performed on : 09/23/2019 5:08:39 PM Test Reason : chest pain Blood Pressure : / mmHG Vent. Rate : 062 BPM Atrial Rate : 062 BPM P-R Int : 156 ms QRS Dur : 082 ms QT Int : 438 ms P-R-T Axes : 058 045 047 degrees QTc Int : 444 ms Normal sinus rhythm. Normal ECG When compared with ECG of 13-JUN-2015 07:08, No significant change was found Unconfirmed Result
[2019-09-23 21:05] LABS: URINE SOURCE CLEAN CATCH
[2019-09-23] MEDS ORDERED: CATAPRES PO ONE (21:07)
--- NOTE | 2019-09-23 21:08 | PROVIDER DOCUMENTATION ---
This chart was entered by Tammy Keith Scribe, acting as scribe for Denzel Estrada MD. HPI-Chest Pain - General Chief Complaint: Edema Stated Complaint: CP NUMBNESS IN CHIN ARM AND LEG Time Seen by Provider: 09/23/19 19:25 Source: patient Allergies/Adverse Reactions: Patient Allergies Allergy/AdvReac Type Severity Reaction Status Date / Time oxycodone HCl * Allergy SHORTNESS Verified 06/16/18 17:39 [From Percodan] OF BREATH oxycodone terephthalate * Allergy SHORTNESS Verified 06/16/18 17:39 [From Percodan] OF BREATH promethazine [From Phenergan] Allergy Unknown Verified 03/02/19 16:44 aspirin [From Percodan] AdvReac bleeding Verified 06/16/18 17:39 ulcers Home Medications: Home Medication List Medication Instructions Recorded Confirmed Last Taken Type Paroxetine HCl 40 mg PO DAILY 06/13/15 03/02/19 02/16/17 07:00 History Hydrocodone/Acetaminophen [[place] 1 ea PO Q6-8H PRN PRN #20 tab 12/07/18 03/02/19 Unknown Rx 5-325 Tablet] Ondansetron Odt [Zofran Odt] 4 mg PO Q6H PRN PRN #10 tab 12/07/18 03/02/19 Unknown Rx Levothyroxine [Synthroid] 1 tab PO DAILY 03/02/19 03/02/19 Unknown History Ferrous Sulfate 325 mg PO BID #60 tab 03/04/19 Unknown Rx Omeprazole [Prilosec] 40 mg PO DAILY@0700 #30 cap 03/04/19 Unknown Rx Sucralfate [Carafate Liquid] 1 gm PO TID #90 udc 03/04/19 Unknown Rx Tramadol HCl [Ultram] 50 mg PO Q6-8H PRN PRN #12 tab 05/03/19 Unknown Rx - History of Present Illness-CP Nature of Presenting Problem: pt is a 69 yowf c/o central cp radiating to back, left finger numbness, bilat LE edema and htn starting 1300 today. pt also reports sob, and cp and htn worsening when walking/mvmt. pt has no hx of heart dz. no ASA or nitro. no htn rx in 2 years. pt followed by Dr. Tong. Location: reports: central Chest Pain Radiation: reports: back Severity in ED: mild Onset/Duration: this afternoon Timing: still present Context/Activities at Onset: reports: none Modifying Factors: improves with: movement (walking worsens htn and cp.) Associated Symptoms: reports: edema, shortness of breath. denies: fever/chills, headache Nitro Today/Relief: no nitro taken today Aspirin Treatment Today: no aspirin today Review of Systems - Adult - REVIEW OF SYSTEMS - ADULT Constitutional: reports: no symptoms reported. denies: fever, fatique, night sweats Eyes: reports: no symptoms reported Ears, Nose, Mouth & Throat: reports: no symptoms reported Cardiovascular: reports: see HPI, chest pain, edema, other (htn). denies: irregular heart rate, orthopnea, palpitations Respiratory: reports: see HPI, shortness of breath. denies: dyspnea on exertion, excessive sputum production, wheezing Gastrointestinal: reports: no symptoms reported. denies: diarrhea, nausea, vomiting Genitourinary: reports: no symptoms reported Musculoskeletal: reports: see HPI, back pain. denies: muscle aches, muscle weakness, neck pain Integumentary: reports: no symptoms reported Neurological: reports: no symptoms reported. denies: dizziness/vertigo, headach e/migraines Psychiatric: reports: no symptoms reported Endocrine: reports: no symptoms reported Hematologic/Lymphatic: reports: no symptoms reported Allergic/Immunologic: reports: no symptoms reported All Other Systems: Reviewed and Negative Past History - Adult - PAST MEDICAL HISTORY-ADULT Review of Records: reports: Nursing Assessment Review, Medications Reviewed, So cial history reviewed & non-contributory. Major Childhood Illnesses: reports: denies history Cardiovascular: reports: HTN Respiratory: reports: asthma Gastrointestinal: reports: GERD, ulcer (at gastric bypass) Obstetrical/Gynecological: reports: denies history Genitourinary: reports: denies history Musculoskeletal: reports: denies history Neurological: reports: denies history Psychiatric: reports: denies history Endocrine/Immune: reports: thyroid disorder Other Conditions: reports: denies history - PRIOR SURGERIES/PROCEDURES Surgical/Procedure History: reports: cholecystectomy, hysterectomy, orthopedic (extremity), gastric bypass, other (breast bx) - IMMUNIZATION STATUS Childhood Immunizations: See Nurse Assessment Flu Vaccine: See Nurse Assessment - FAMILY HISTORY Family History: reviewed, not pertinent - SOCIAL HISTORY Smoking: other (former smoker) Substance Use: none/never Physical Exam-General - PHYSICAL EXAM-ADULT Initial Vital Signs Reviewed: Yes - CONSTITUTIONAL General Appearance: appears well, alert, no apparent distress - EYES Eyes: PERRL/EOMI, pink conjunctivae - HEAD, EARS, NOSE, MOUTH & THROAT HENMT: normocephalic/atraumatic, moist mucous membranes - NECK Neck: non-tender, full range of motion, supple, normal inspection - RESPIRATORY Respiratory: chest non-tender, lungs clear, normal breath sounds, no pleuratic chest pain, no respiratory distress, no accessory muscle use. negative: wheezing, pain on inspiration, pleural rub - CARDIOVASCULAR Cardiovascular: normal peripheral pulses, regular rate, rhythm, no edema, no gallop, no JVD, no murmur, other (htn, angina). negative: bradycardia, tachycardia, extra beats, friction rub - GASTROINTESTINAL (ABDOMEN) Abdominal Exam: normal bowel sounds, non tender, soft - MUSCULOSKELETAL Back Exam: normal inspection Extremity: normal range of motion, non-tender, normal inspection - SKIN Integumentary: normal color, normal turgor, warm/dry - NEUROLOGIC Neurologic: grossly normal, no motor/sensory deficits - PSYCHIATRIC Psych/Mental Status: normal mood/affect, normal thought content, normal thought process, oriented x 3 - HEART Score HEART Score: History: Moderately Suspicious HEART Score: ECG: Non-Specific Repolarization Disturbance/LBBB/PM HEART Score: Age: > or = 65 Years HEART Score: Risk Factors for Atherosclerotic Disease: 1 or 2 Risk Factors HEART Score: Troponin: < or = Normal Limit Total HEART Score:: 5 Progress - PLAN OF CARE/RESULTS Progress/Plan/Lab Results: Vital Signs - 8 hr 09/23/19 17:00 09/23/19 19:26 09/23/19 19:28 Temperature 98.2 F Pulse Rate 62 Respiratory Rate 16 Blood Pressure 156/82 179/104 O2 Sat by Pulse Oximetry 100 99 100 09/23/19 19:30 09/23/19 19:33 09/23/19 19:45 Temperature Pulse Rate Respiratory Rate Blood Pressure 189/89 O2 Sat by Pulse Oximetry 100 100 100 09/23/19 20:00 09/23/19 20:03 09/23/19 20:04 Temperature Pulse Rate Respiratory Rate Blood Pressure 181/99 O2 Sat by Pulse Oximetry 100 100 100 Laboratory Results - last 24 hr 09/23/19 09/23/19 09/23/19 17:50 17:50 17:50 WBC 5.91 RBC 4.11 L Hgb 10.2 L Hct 34.0 L MCV 82.7 MCH 24.8 L MCHC 30.0 L RDW Std Deviation 16.0 H Plt Count 379 MPV 9.4 Immature Gran % (Auto) 0.0 Neut % (Auto) 59.0 Lymph % (Auto) 31.5 [place] % (Auto) 6.8 Eos % (Auto) 2.2 Baso % (Auto) 0.5 Immature Gran # (Auto) 0.00 Neut # (Auto) 3.49 Lymph # (Auto) 1.86 [place] # (Auto) 0.40 Eos # (Auto) 0.13 Baso # (Auto) 0.03 PT INR PTT (Actin FS) Sodium 140 Potassium 4.3 Chloride 105 Carbon Dioxide 24 L Anion Gap 11 BUN 13 Creatinine 0.7 Estimated GFR/1.73 m2 > 60 BUN/Creatinine Ratio 19 Glucose 95 Calculated Osmolality 279 Calcium 8.7 L Total Bilirubin 0.20 AST 17 ALT 9 L Alkaline Phosphatase 117 H Creatine Kinase 68 Troponin T Akq-N-Nobdbrkmnwp Pept 184 Total Protein 6.4 Albumin 3.9 Globulin 2.5 Albumin/Globulin Ratio 1.6 09/23/19 09/23/19 17:50 17:50 WBC RBC Hgb Hct MCV MCH MCHC RDW Std Deviation Plt Count MPV Immature Gran % (Auto) Neut % (Auto) Lymph % (Auto) [place] % (Auto) Eos % (Auto) Baso % (Auto) Immature Gran # (Auto) Neut # (Auto) Lymph # (Auto) [place] # (Auto) Eos # (Auto) Baso # (Auto) PT 13.8 INR 1.05 PTT (Actin FS) 28.2 Sodium Potassium Chloride Carbon Dioxide Anion Gap BUN Creatinine Estimated GFR/1.73 m2 BUN/Creatinine Ratio Glucose Calculated Osmolality Calcium Total Bilirubin AST ALT Alkaline Phosphatase Creatine Kinase Troponin T < 0.010 Vmc-F-Lnhdnrhwhdl Pept Total Protein Albumin Globulin Albumin/Globulin Ratio Orders Category Date Time Status Cardiac Monitoring DIRECTED Care 09/23/19 17:02 Active Oxygen Therapy- ED Nursing DIRECTED Care 09/23/19 17:02 Active Saline Loc NOW Care 09/23/19 17:02 Active CHEST-2 VIEWS [RAD] Stat Exams 09/23/19 17:02 Completed CBC WITH ELECTRONIC DIFF [HEME] Stat Lab 09/23/19 17:50 Completed CK PROFILE [SP CHEM] Stat Lab 09/23/19 17:50 Completed COMPREHENSIVE METABOLIC PANEL [CHEM] Stat Lab 09/23/19 17:50 Completed PRO B-NATRIURETIC PEPTIDE Stat Lab 09/23/19 17:50 Completed PROTIME WITH INR [COAG] Stat Lab 09/23/19 17:50 Completed PTT [COAG] Stat Lab 09/23/19 17:50 Completed TROPONIN T Stat Lab 09/23/19 17:50 Completed URINALYSIS W/POSS RFLX CULT [URINALYSIS] Stat Lab 09/23/19 21:00 Ordered CP/SOB/Palp >45 yrs of Age Stat Oth 09/23/19 17:02 Ordered EKG [EKG] Stat Ther 09/23/19 17:02 Draft Result Diagrams: 09/23/19 17:50 09/23/19 17:50 - EKG 1 Time of EKG reading by physician:: 17:16 EKG Read and Signed by:: Marek Moreno EKG Interpretation (*Must complete 3 of following elements*): Normal Rate: 62 Rhythm: NSR [place]: normal QRS: normal [place] Interval: normal ST Wave: normal - XRAY 1 XRAY Study: Chest Impression: Normal, See EMR Report ( CHEST-2 VIEWS - 09/23/2019 INDICATION: chest pain COMPARISON: None FINDINGS: The lungs are normally expanded and clear. Heart size and mediastinal contours are normal. No pneumothorax or pleural effusion. IMPRESSION: Negative exam. Electronically signed by Pepito Urbina 09/23/2019 6:17 PM) - CONSULTS/PCP/HOSPITALIST Notification #1 *Consult/PCP/Hospitalist*: Dr. Chapa/Hospitalisy Time Discussed: 20:07 Consult Disposition: Admit Departure - Departure Date of Disposition Decision: 09/23/19 Time of Disposition Decision: 20:05 DIAGNOSIS: Chest pain, Uncontrolled hypertension Disposition: ADMITTED INPATIENT 09 Certified Medical Emergency: Emergent Condition: Stable Referrals and Follow-Ups: Lm Tong MD [Primary Care Provider] - - Critical Care Note This patient required my direct & personal management of CC.: No Attestation - Physician/ MICKI Attestation Patient care was provided by Advanced Practice Provider:: No The physician spent face to face time with patient:: Yes Advanced Practice Provider documentation review:: Supervising physician onsite and consulted in the evaluation and care of this patient. The physician did have a face to face encounter with the patient. This chart was documented by the indicated scribe, (Tammy Keith Scribe) and accurately reflects the services I performed and decisions made by me, Denzel Munoz MD, as attested by the provider's signature.
[2019-09-23 21:09] LABS: BILIRUBIN URINE NEGATIVE (NEGATIVE); BLOOD URINE NEGATIVE (NEGATIVE); COLOR YELLOW; GLUCOSE URINE NEGATIVE (NEGATIVE); KETONE URINE NEGATIVE (NEGATIVE); LEUKOCYTES URINE SMALL (NEGATIVE); NITRITE URINE NEGATIVE (NEGATIVE); PROTEIN URINE NEGATIVE (NEGATIVE); SP GRAVITY URINE 1.012; TURBIDITY URINE CLEAR (CLEAR); UROBILINOGEN URINE NORMAL (NORMAL)
[2019-09-23 21:13] LABS: UR EPITHELIAL CELLS <10 /HPF (<10); URINE BACTERIA NEGATIVE /HPF; URINE RBC <10 /HPF (<10); URINE WBC <10 /HPF (<10)
[2019-09-23 21:19] LABS: URINE CASTS NONE SEEN; URINE CRYSTALS NONE SEEN; URINE SMALL ROUND CELLS NONE SEEN; URINE YEAST NONE SEEN
[2019-09-24] MEDS ORDERED: SODIUM CHLORIDE 0.9% INJ ONE (01:06)
[2019-09-24] MEDS ORDERED: ZOFRAN IV PRN (01:06)
[2019-09-24] MEDS ORDERED: PROTONIX IV ONE (01:06)
[2019-09-24] MEDS ORDERED: TYLENOL PO PRN (01:06)
[2019-09-24] MEDS ORDERED: NITROGLYCERIN TOP ONE (01:06)
[2019-09-24] MEDS ORDERED: PYRIDIUM PO PRN (01:06)
[2019-09-24] MEDS ORDERED: MORPHINE IV PRN (01:06)
[2019-09-24] MEDS: ROCEPHIN 1 GM in NS 50 ML IV SCH ×2 (02:15→22:37)
[2019-09-24] MEDS: PROTONIX PO SCH (06:09)
[2019-09-24] MEDS: SYNTHROID PO SCH (06:10)
[2019-09-24] MEDS ORDERED: NITROGLYCERIN TOP PRN (06:30)
--- NOTE | 2019-09-24 07:01 | HISTORY AND PHYSICAL ---
PRIMARY CARE PROVIDER: Dr. Tong DATE AND TIME: 09/23/2019 at 2245. CHIEF COMPLAINT: Chest pain. HISTORY OF PRESENT ILLNESS: Ms. Sahni is a 69-year-old female who reports starting at 1 p.m. today she did have the onset of chest pain that was in the center of her chest and radiated straight through to her back. She reports that the pain was a dull type pain. She stated since the onset today at 1:00p it was constant. She still reports she is having some similar pain right now, although it is not quite as intense as it was earlier. She also reports that she did have some associated symptoms of dizziness, shortness of breath, and nausea. She did state with the pain she also had this feeling that she was choking in her throat almost like she "can't get enough air." She also complains of a little bilateral lower extremity swelling. She also did initially report some left hand numbness with her chest pain earlier, although states this has resolved at this time. She also reports her blood pressure has been elevated as well. The patient states she previously did use to take medications for blood pressure, although she has not had to do so for quite some time. Up until just recently her blood pressure had not been elevated. The patient did report that a few weeks ago she did have a similar episode of chest pain. She stated that her chest pain did start when she was cleaning out the closet and was just hanging up some clothes. She was not do really doing anything strenuous and was not exerting herself. I did ask the patient if she took an aspirin prior to arrival or was given one in the ER, and the patient states that she cannot take aspirin due to being told she was not allowed to take aspirin secondary to her history of gastric bypass surgery and gastrointestinal bleeding. She was admitted in February of 2019 for an upper GI bleed. She also does have a history of peptic ulcer disease, although she denies any headache, abdominal pain, vomiting, or diarrhea. She denies any dysuria, although has been reporting quite a bit of urinary frequency. Other than the swelling in her legs and the previously mentioned left hand numbness, she denies any other pain, numbness, tingling or swelling in extremities. She did report that the dorsal portion of her left foot just proximal to her 4th and 3rd toes has been sore, although upon examination it was not tender. There is no erythema warmth, ecchymosis, or deformity noted to this area. She denies any fever, body aches, or chills. She also denies any cough. The patient also denies any previous history of coronary artery disease, although she did report a history of a reported tachydysrhythmia for which she was treated for at [facility] and did undergo a cardiac ablation. The patient could not tell me what type of arrhythmia this was. Upon evaluation in the ER, she was noted to have an initial blood pressure of 156/82, although while she was in the ER her blood pressure did increase to as high as 189/89. They did give her clonidine 0.1 mg p.o. and blood pressure had improved shortly after administration of clonidine being 155/72, and the most recent is 113/65. She was slightly anemic, although this does appear to be at her baseline, and the patient does have a history of this. Cardiac enzymes have been negative thus far. Electrolytes are within normal limits. An EKG performed in the ER did show a normal sinus rhythm at a rate of 62 with a QTc of 444. Chest x-ray did not show any acute abnormalities. She did not have any JVD upon examination. Lung sounds are clear to auscultation in bilateral full ivy. The patient did report some swelling in bilateral lower extremities. She does not appear to have any edema present. I have spoken to the patient since my initial examination, and I did provide her with medications of Protonix, Zofran, 1/2 inch of nitroglycerin paste, and morphine IV, and since that time, she states her chest pain has resolved. She will be admitted to medical floor for further treatment and evaluation of her chest pain. REVIEW OF SYSTEMS: A 14-point review of systems was conducted with the patient and all were negative, except for pertinent positives mentioned in the HPI. PAST MEDICAL HISTORY: 1. Hypothyroidism. 2. Hypertension, although the patient states she has not taken medication for this for quite some time. 3. Peptic ulcer disease. 4. History of upper gastrointestinal bleeding. 5. Anemia. 6. History of tachydysrhythmia. The patient initially upon my examination told me she did not know what type of tachycardia she had, although in the old historical patient data, I was able to obtain a history and physical and a cardiac consultation which did note that the patient had SVT. She has since undergone a cardiac ablation reportedly. PAST SURGICAL HISTORY: 1. Bilateral cataract surgery. 2. Total hysterectomy. 3. Bilateral carpal tunnel surgery. 4. Bilateral shoulder surgery. 5. Left hip replacement. 6. Right knee replacement. 7. Gastric bypass surgery in 2004. 8. Cholecystectomy. 9. Breast biopsy. 10. Reported positive findings of MRSA. The patient states that recently they did inform her that she had nasal colonization of MRSA and has recently been placed on Bactroban ointment, although she denies any previous knowledge of any MRSA infections prior to this. 11. She does report she takes [place] for chronic pain in her left knee and is planning to have left knee replacement surgery in the next few months. SOCIAL HISTORY: The patient is a former smoker. She did quit 20 years ago but did smoke 1 pack per day for a period of 19 years. There is no known alcohol or illicit drug use. FAMILY HISTORY: Positive for her father having a history of pancreatic cancer and coronary artery disease. Her mother has a history of arthritis. ALLERGIES: Percodan and Phenergan. HOME MEDICATIONS: 1. Foltx tablet 1000 mg p.o. daily. 2. Ferrous sulfate 65 mg p.o. daily. 3. [place] 5 mg p.o. q.6-8 hours p.r.n. for pain. 4. Synthroid 100 mcg tablet p.o. daily. 5. Protonix 40 mg p.o. daily. 6. Paxil 40 mg p.o. daily. DIAGNOSTIC DATA: White blood cell count 5910, hemoglobin 10.2, hematocrit 34, platelet count 379,000. PT 13.8, INR 1.05, PTT 28.2. Sodium 140, potassium 4.3, chloride 105, serum bicarbonate 24, BUN 13, creatinine 0.7 with a GFR greater than 60, glucose 95, calcium 8.7, magnesium 2.3. Liver function tests within normal limits, except for alkaline phosphatase is slightly elevated at 117. CK 68. Troponin less than 0.01. ProBNP is 184. Urinalysis was negative, except she did have some small leukocytes noted. She was also negative for protein, glucose, ketones, blood, nitrites, and bacteria. IMAGING STUDIES: Chest x-ray did not show any acute abnormalities per Radiology. EKG: Showed normal sinus rhythm at a rate of 62 with a QTc of 444. PHYSICAL EXAMINATION: VITAL SIGNS: Temperature 98.3 degrees, heart rate 72, respirations 18, blood pressure is 155/72, oxygen saturation is 100% on room air. GENERAL: Ms. Sahni is a very pleasant 69-year-old female who is resting on the ER stretcher. She is in no acute distress. She is awake, alert, and able to answer questions appropriately. HEENT: Head is atraumatic, normocephalic. Pupils are 3.3 mm bilaterally. Oral mucosa is moist. NECK: Supple. Trachea midline. No JVD noted. CARDIOVASCULAR: S1, S2 present. She does have what sounds to be an approximately 1/6 systolic murmur noted. There are no other rubs or gallops present. She does have a regular rate and rhythm. PULMONARY: Patient has symmetrical chest expansion bilaterally. Lung sounds are clear to auscultation in bilateral full ivy. ABDOMEN: Soft, nontender, nondistended. Bowel sounds are present in all 4 quadrants and normoactive. EXTREMITIES: No cyanosis or edema noted. Pulse, motor, and sensory are intact in all extremities. Radial and pedal pulses are 2+ bilaterally. INTEGUMENTARY: The patient's skin is pink, warm, and dry. NEUROLOGICAL: Patient is alert and oriented to person, place, time, and situation. There are no focal neurological deficits noted. ASSESSMENT AND PLAN: 1. Chest pain. For further evaluation of this we have placed the patient to be NPO after midnight until evaluated by Cardiology. We will do a series of cardiac enzymes. We will repeat the EKG in the morning. We have ordered an echocardiogram for the morning as well. We will add on a TSH also, as well as a lipid profile in the morning. We will place her with p.r.n. orders for morphine and nitroglycerin if needed, although at this time since being given nitroglycerin and morphine the patient's chest pain has resolved. We have placed a consult with Dr. Gresham of Cardiology and will await his evaluation and further recommendations for management. 2. History of hypertension. The patient reports that she has not taken medication for this for quite some time, although her blood pressure was elevated in the ER and did get up to as high as 180 systolically, although since being given clonidine 0.1 mg p.o. it has improved with the last reading of 113/65. We will continue to monitor this closely and implement antihypertensives as necessary. 3. History of supraventricular tachycardia (SVT), status post cardiac ablation. The patient is in a sinus rhythm at this time with a controlled rate. 4. Hypothyroidism. We will continue her Synthroid. 5. History of peptic ulcer disease. We have continued her Protonix. The patient did report that she had been having some dark stools, although states this has been ongoing since she started taking iron. 6. Urinary tract infection. The patient was reporting symptoms with urinary frequency. We have placed her on an antibiotic with Rocephin, and we are awaiting urine culture results. 7. Deep vein thrombosis prophylaxis will provided with sequential compression devices. The patient has been placed on the medical floor with telemetry. We will do vital signs q.4 hours. We will do strict intake and output. We also will repeat a CBC, BMP and magnesium in the morning. Further orders and recommendations pending hospital course, diagnostic studies, and physician evaluation. Dictated by BRIAN Linares for Joaquin Chapa MD cc: MD Lm Hughes MD [facility]
[2019-09-24 08:00] LABS: BASO# 0.02 X1000 (0.0-0.2); BASO% 0.4 % (0.0-0.8); EOS% 4.5 % (0.0-10.0); HEMATOCRIT 30.6 % (37.0-47.0); HEMOGLOBIN 9.1 g/dL (12.0-16.0); LYMPH# 1.49 X1000 (1.2-3.4); LYMPH% 33.4 % (20.5-51.1); MCH 24.7 PG (27-31); MCHC 29.7 g/dL (33-37); MCV 83.2 FL (81-99); MONO# 0.34 X1000 (0.11-0.59); MONO% 7.6 % (1.7-9.3); MPV 9.9 FL (7.4-10.4); NEUT# 2.41 X1000 (1.4-6.5); NEUT% 54.1 % (42.2-75.2); PLT 344 X1000 (130-400); RBC 3.68 XMIL (4.2-5.4); WBC 4.46 X1000 (4.8-10.8)
[2019-09-24 08:17] LABS: AGAP 11; BUN 13 mg/dL (8-22); CALCIUM 8.6 mg/dL (8.8-10.2); CHLORIDE 107 mmol/L (98-107); COSMO 285; CREATININE 0.6 mg/dL (0.5-0.9); ESTIMATED GFR > 60; GLUCOSE 96 mg/dL (70-104); MAGNESIUM 2.4 mg/dL (1.5-2.7); POTASSIUM 3.9 mmol/L (3.5-5.1); SODIUM 143 mmol/L (136-145); TCO2 25 mmol/L (25-35)
[2019-09-24] MEDS: FOLTX PO SCH (08:25)
[2019-09-24] MEDS: PAXIL PO SCH (08:25)
[2019-09-24] MEDS: FERROUS SULFATE PO SCH (08:28)
--- NOTE | 2019-09-24 10:02 | EKG Report ---
Test Performed on : 09/24/2019 06:49:11 AM Test Reason : chest pain Blood Pressure : / mmHG Vent. Rate : 070 BPM Atrial Rate : 070 BPM P-R Int : 160 ms QRS Dur : 070 ms QT Int : 410 ms P-R-T Axes : 068 052 067 degrees QTc Int : 442 ms Normal sinus rhythm. Normal ECG When compared with ECG of 23-SEP-2019 17:08, (Unconfirmed) No significant change was found Confirmed by Ran BOLDEN, Lm ([id number]) on 09/25/2019 8:38:10 AM
[2019-09-24 12:37] LABS: RETIC% 1.31 % (0.8-2.1); RETIC-HE 29.3 PG (28.2-36.6)
[2019-09-24 12:50] LABS: IRON SATURATION 9 %; TIBC 371 ug/dL; TOTAL IRON 32 ug/dL (49-151); UNBOUND IRON 339 ug/dL (112-346)
--- NOTE | 2019-09-24 14:11 | PROGRESS NOTE ---
DATE: 09/24/2019 SUBJECTIVE: A 69-year-old, white female, patient of Dr. Tong, came in with chest pain. Please see the extensive H and P done by hospitalist. Currently pain-free. Pain was atypical. Currently, patient is on NPO, until the office receptionist. REVIEW OF SYSTEMS: None reported. PAST MEDICAL HISTORY: Reviewed. PAST SURGICAL HISTORY: Reviewed. MEDICINES: Reviewed. ALLERGIES: Reviewed. PHYSICAL EXAMINATION: Vital Signs: Temperature is 98.3, pulse is 62, blood pressure is 112/71, 97% on room air. HEENT: Examination within normal limits. Neck: Supple. Chest: Clear. Heart sounds are regular. Nonreproducible. Belly is soft, nontender. No peripheral edema. No obvious deficits. LABORATORY DATA: CBC: White cell count 4.4, hematocrit 30, platelets 344,000. SMA-7 is normal. CK and cardiac enzymes were normal. Triglycerides 65, cholesterol 145, LDL is 82. Urinalysis is clear. Urine cultures were negative. Chest x-ray negative. EKG normal sinus. Q-waves in the V1, V2. Nothing acute. QT interval 44. ASSESSMENT AND PLAN: 1. Chest pain, ruled out for myocardial infarction, atypical. Follow up on echocardiogram and stress test in the morning. I appreciate Dr. Gresham's consult. Continue on morphine, nitroglycerin. Apparently, patient is allergic to aspirin. 2. Hypertension. Altace 5 mg by mouth twice a day. 3. Hypothyroidism, on Synthroid. 4. History of anemia. Hematocrit of 30.6. Dr. Gresham has ordered ferritin, folate, B12, and we will follow up on cardiac workup of anemia. Dr. Tong is going to see in the morning. LEVEL OF DOCUMENTATION: 35 minutes. cc: MD Lm Solis MD
--- NOTE | 2019-09-24 14:22 | CARDIOLOGY CONSULTATION ---
DATE: 09/24/2019 CONSULTATION REQUESTED BY: Hospitalist service. REASON FOR CONSULTATION: Chest pain. HISTORY: Mrs. Sahni is a 69-year-old female who was in her usual state of health until about 1 p.m. yesterday September 23. The patient said that she was doing some work in her house working in her closet, putting clothes away and all of a sudden she developed severe substernal chest discomfort. This appeared to worsen by doing physical activity. She sat down and waited for a while. It seemed to get better and then she stood up, walked and felt dizzy. At that time her blood pressure was 170/101. She got worried because the pain was not getting better and decided to come to the emergency room for evaluation. In the ER, they have given her some nitroglycerin that helped a little bit and now she is still hurting about 5/10 in severity. Of note, she has had EKG done twice, both EKGs showed no acute ischemic changes. One was done at about 5 p.m. on September 23. The other one was done this morning at 6:49 a.m. Both showed no acute ischemic changes. Three troponins have been drawn. They are negative. The patient is not in any distress. She is not sweating, is not tachycardic, not diaphoretic. She has not experienced pains like this before. The patient has a past history positive for being morbidly obese years ago up to 279 pounds and underwent a gastric bypass in 2004, which led to a weight loss of more than 100 pounds. Currently, her weight has been holding around 131 pounds. She does have a history of gastric ulcer in the area of the bypass which required management. She was recently admitted to the hospital with anemia on February 2019 and underwent upper endoscopy by Dr. Bach which showed mild gastritis at the gastrojejunal anastomosis with stricture of the gastrojejunostomy anastomosis and Dr. Bach performed gastric outlet dilatation with a TTS balloon on 03/03/2019. The patient does have anemia. The reason for the anemia is not clear. She has been taking some vitamin supplements. The patient has had hypothyroidism. Years ago she had supraventricular tachycardia and she was referred to [facility] and over there, Dr. Nahum Magallanes performed radiofrequency ablation on 06/23/2010. The patient's surgical history is very extensive. She has had a gastric bypass by Dr. Jann Andrade in 2004. She has had left hip replacement before the bypass and right knee replacement after bypass. She has total hysterectomy, bilateral cataract surgery, cholecystectomy. SOCIAL HISTORY: She is a . She has 2 grown up children ages 51 and 47. She smoked in the past but she has been quit for more than 20 years. FAMILY HISTORY: Father at the age of 50 from heart attack as well as a brother. REVIEW OF SYSTEMS: The patient says that she has chronic pain in the left knee and she has a scheduled left total knee replacement with Dr. Sherwood at the orthopedic group in with the orthopedic group in [place] next month. She says that she does not eat on a regular schedule. Sometimes she has gaps of several hours between meals. For instance, she ate her last meal on Wednesday evening at 8 p.m. and at the time of the onset of pain which was 1 p.m. on September 23 she had not had anything by mouth other than a cup of coffee. She denies having claudications. She admits to having some puffiness of her legs. She has no fever or cough. No rashes. No dark stools. HOME MEDICATIONS: She takes B12/calcium and B6 1000 mg daily, she takes iron sulfate 65 mg daily, hydrocodone every 6 hours, levothyroxine 1 tablet daily, Protonix 40 mg daily, paroxetine 40 mg daily. ALLERGIES: Promethazine, aspirin . (please refer to EMR) PHYSICAL EXAMINATION: Blood pressure is 111/61, temperature 98.3 degrees, pulse 62, respirations 17. The patient is awake, alert, oriented, no distress.HEENT: Unremarkable. Chest: Sounds clear to auscultation and percussion. Heart: Sounds regular and rhythmic. No gallop or murmur. Abdomen: Soft, nontender. No masses. No hepatomegaly. Extremities: Show good pulses. No peripheral edema. Neurological: Nonfocal. Moves 4 extremities. Additional blood work, her white cell count is 4160, hemoglobin is 9.1 g percent, RDW 16%. MCV is 83.2, her platelet count 344,000. Sodium 143, potassium 3.9, BUN 13, creatinine 0.6, chloride is 107, carbon dioxide 25, cholesterol 145, LDL 82, HDL 62, triglycerides 65. IMPRESSION: 1. Patient who presented to the hospital with chest pain sudden onset without any ischemic EKG changes or elevation of troponin. This really sounds noncardiac. I suspect that her pain is gastrointestinal in origin given her history of gastric bypass and a recent finding of a stricture of the anastomosis by Dr. Bach in February of this year. In addition, she has chronic anemia with possibly microcytic indices. 2. History of hypertension. 3. History of osteoarthritis involving multiple joints, hips, knees with chronic pain in the left knee at this time. 4. Remote history of supraventricular tachycardia status post ablation in 2009. 5. Hypothyroidism. RECOMMENDATION: At this time I would suggest to obtain a stress test in the morning. I am going to put her on ramipril 5 mg twice a day to optimize her blood pressure. I am going to check iron level as well as B12, folate to see if there is any deficiency there that could be corrected while she is in the hospital. A 2D echocardiogram has already been requested. If the stress test and the echocardiogram are consistent with not having any active heart problem, I would strongly recommend that this patient gets to be seen by Dr. Bach from Gastroenterology for a definitive diagnosis. We will follow her. Thank you for the opportunity to participate in her evaluation. cc: MD Lm Newsome MD MTDD
[2019-09-24] MEDS: CARAFATE LIQUID PO SCH ×2 (14:38→20:09)
[2019-09-24] MEDS: VENOFER 250 MG in NS 150 ML IV SCH (14:38)
[2019-09-24] MEDS: ALTACE PO SCH (20:09)
[2019-09-24] MEDS ORDERED: FOLIC ACID 1 MG in NS 50 ML IV ONE (21:18)
[2019-09-25] MEDS: CARAFATE LIQUID PO SCH ×4 (01:09→20:30)
[2019-09-25] MEDS: SYNTHROID PO SCH (06:01)
[2019-09-25] MEDS: PROTONIX PO SCH (06:01)
--- NOTE | 2019-09-25 09:18 | PROGRESS NOTE ---
DATE: 09/25/2019 Ms. Sahni was admitted for retrosternal chest pain. The pain was severe. Her vital signs are stable this morning. Lungs are clear. Heart sounds are normal. Repeat EKG is unremarkable. Cardiac enzymes are negative. She is anemic. Hemoglobin is 9.1. It has dropped from 10.2 to 9.1. We will check a repeat CBC in the morning and get the stool for occult blood. Her blood indices revealed that she has a low MCH and MCHC. However, MCV is normal. This still looks like iron deficiency to me. We will try to get the stool checked for occult blood. -8 cc: Lm Tong MD
[2019-09-25] MEDS ORDERED: LEXISCAN ONE (12:05)
[2019-09-25] MEDS: FERROUS SULFATE PO SCH (15:08)
[2019-09-25] MEDS: FOLTX PO SCH (15:08)
[2019-09-25] MEDS: ALTACE PO SCH ×2 (15:08→20:30)
[2019-09-25] MEDS: PAXIL PO SCH (15:08)
[2019-09-25] MEDS: VENOFER 250 MG in NS 150 ML IV SCH (15:08)
--- NOTE | 2019-09-25 16:44 | Diag Imaging Result Document ---
PROCEDURE NAME: MYOCARDIAL PERF SCAN, STR/REST - 09/24/2019 STUDY: Rest/stress walking Lexiscan myocardial perfusion stress test. INDICATION: Patient with severe chest pain. DESCRIPTION: The patient came into the nuclear lab and received a rest injection of technetium 99 sestamibi 10.6 mCi. Multiple tomographic views of the cardiac structures were obtained at rest. Subsequently, the patient underwent a walking Lexiscan protocol; 0.4 mg of Lexiscan were infused. At peak infusion she was injected with technetium 99 sestamibi 33.2 mCi. Multiple tomographic views of the cardiac structures were obtained following the completion of the protocol. SUMMARY OF THE ELECTROCARDIOGRAPH PORTION OF THE STUDY: Resting ECG shows sinus rhythm with a rate of 57 beats per minute. Resting blood pressure was 183/91. During the protocol the heart rate increased to a maximum of 117 beats per minute. That represents 78% of maximum predicted heart rate for her age. Blood pressure went down to 150/98. The patient reported no chest pain, shortness of breath, or palpitations. The ECG shows some flattening of the T wave with sinus tachycardia at peak infusion. Following the completion of the test, the heart rate and blood pressure returned back to their baseline. In summary, the electrocardiographic response to a walking Lexiscan protocol is nonspecific. SUMMARY OF THE MYOCARDIAL PERFUSION PORTION OF THE STUDY: Poststress tomographic views of the left ventricle showed normal homogeneous distribution of the radiotracer throughout the entire left ventricular myocardium. There is no evidence of any postexercise defect. The rest images showed normal perfusion. The polar plots revealed the same. There is no evidence of inducible ischemia nor myocardial scar. Gated SPECT on the rest images showed ejection fraction of 75%, poststress 81%. The lung/heart ratio is normal. TID is normal. CONCLUSION: In summary, this study shows: 1. Nonspecific electrocardiographic response to a walking Lexiscan protocol with a normal hemodynamic response. 2. Normal poststress myocardial perfusion scan. There is no scintigraphic evidence of pharmacologically induced myocardial ischemia. 3. Normal left ventricular systolic function. The ejection fraction is estimated at 81% with normal ventricular volumes and no wall motion abnormality. This study represents low risk for ischemic events. cc: Marco Antonio Gresham MD
--- NOTE | 2019-09-25 19:52 | ECHO REPORT ---
ORDER DATE: 09/24/2019 INTERPRETING PHYSICIAN: Dr. Gresham REQUESTING PHYSICIAN: Hospitalist service. CLINICAL INDICATIONS: Chest pain. M-MODE MEASUREMENTS: Left ventricle end diastole: 3.9 cm. Left ventricle end systole: 2.8 cm. Posterior wall: 0.9 cm. Interventricular septum: 0.9 cm. Left atrium: 3.2 cm. Aortic root: 2.8 cm. SUMMARY OF 2-DIMENSIONAL IMAGIN. Left ventricular function is normal. Ejection fraction is estimated at 55% to 60%. There is no wall motion abnormality noted. 2. There is some thickening of the mitral valve. Color flow mapping indicates trace of regurgitation. 3. The pulse wave Doppler of mitral inflow is normal. 4. Tissue Doppler of septal and lateral mitral annulus average 10 cm. 5. Pulmonary venous flow is normal. There is no diastolic dysfunction. 6. There is some moderate enlargement of the left atrium. 7. The aortic valve looks normal. Color flow mapping shows no regurgitation. 8. The pulmonic valve looks normal. Color flow mapping is unremarkable. 9. The tricuspid valve shows mild degree of regurgitation. 10.The pulmonary pressure is estimated at 33 to 38 mmHg. 11.The right-sided chambers are normal. 12.There is no pericardial effusion, no mass, and no thrombus. Clinical correlation is recommended. cc: MD Lm Newsome MD Primary Care Physician
[2019-09-25 20:17] LABS: FERRITIN 225 ng/mL (13-150)
--- NOTE | 2019-09-25 20:28 | CARDIOLOGY PROGRESS NOTE ---
DATE: 09/25/2019 CHIEF COMPLAINT: Chest pain. SUBJECTIVE: Mrs. Sahni is feeling a little better. We have finished the testing on her. Her echocardiogram looks basically normal. Her stress test also looks normal. OBJECTIVE: Blood pressure is 143/70, temperature 98.8, pulse 68, respirations 16. The patient is awake, alert, in no distress. HEENT is unremarkable. Chest clear to auscultation and percussion. Heart sounds are regular and rhythmic. No gallop or murmur. Abdomen is nontender. Extremities show no edema. Neurologic: Follows commands. Moves all four extremities. DIAGNOSTIC DATA: Blood work has not been done today. Results of the echocardiogram, as I said, showed normal ejection fraction and no valvular abnormalities of any significance. Her Stress Perfusion images basically came back normal. IMPRESSION: 1. The patient presented with chest pain. This is more likely noncardiac chest pain. I suspect very strongly that she may have gastroesophagitis related to her previous gastric bypass. 2. Iron deficiency anemia. 3. Osteoarthritis. 4. Hypothyroidism. 5. History of hypertension. RECOMMENDATIONS: At this time, I would suggest to refer the patient to a medical/surgery registered nurse for management of her nutritional deficiencies or Hematology/Oncology for infusion of iron and folate supplements. The patient is probably not absorbing the supplements because of her underlying gastric esophageal issues. Cardiac rosa, no further testing or intervention is required. She may be discharged at the earliest convenience of Dr. Tong. Followup will be arranged as needed. cc: MD Lm Newsome MD MTDD
[2019-09-25] MEDS: ROCEPHIN 1 GM in NS 50 ML IV SCH (21:55)
[2019-09-26] MEDS: ROCEPHIN 1 GM in NS 50 ML IV SCH (01:03)
[2019-09-26] MEDS: CARAFATE LIQUID PO SCH ×2 (03:18→08:57)
[2019-09-26] MEDS: PROTONIX PO SCH (06:56)
[2019-09-26] MEDS: SYNTHROID PO SCH (06:56)
[2019-09-26 07:35] LABS: BASO# 0.03 X1000 (0.0-0.2); BASO% 0.6 % (0.0-0.8); EOS# 0.24 X1000 (0.0-0.7); EOS% 4.7 % (0.0-10.0); HEMATOCRIT 31.8 % (37.0-47.0); HEMOGLOBIN 9.5 g/dL (12.0-16.0); IMM GRAN# 0.02 X1000 (0.0-0.04); IMM GRAN% 0.4 % (0.0-0.5); LYMPH# 1.65 X1000 (1.2-3.4); LYMPH% 32.5 % (20.5-51.1); MCH 25.1 PG (27-31); MCHC 29.9 g/dL (33-37); MCV 84.1 FL (81-99); MONO# 0.37 X1000 (0.11-0.59); MONO% 7.3 % (1.7-9.3); MPV 9.9 FL (7.4-10.4); NEUT# 2.76 X1000 (1.4-6.5); NEUT% 54.5 % (42.2-75.2); PLT 342 X1000 (130-400); RBC 3.78 XMIL (4.2-5.4); RDW 16.5 % (11.5-14.5); WBC 5.07 X1000 (4.8-10.8)
[2019-09-26] MEDS: VENOFER 250 MG in NS 150 ML IV SCH (08:58)
[2019-09-26] MEDS: PAXIL PO SCH (08:58)
[2019-09-26] MEDS: ALTACE PO SCH (08:58)
[2019-09-26] MEDS: FERROUS SULFATE PO SCH (08:58)
[2019-09-26] MEDS: FOLTX PO SCH (08:58)
--- NOTE | 2019-09-26 09:56 | PROGRESS NOTE ---
DATE: 09/26/2019 Ms. Christie is anemic. She has some epigastric pain and we have got consults with Dr. Weathers as well as Dr. Bach respectively for hematologic and GI problems. Her stress test was negative yesterday. Ejection fraction is quite well. She is going to have a knee replacement in next 2 to [address] Sherwood. -7 cc: Lm Tong MD
--- NOTE | 2019-09-26 11:12 | GASTROENTEROLOGY CONSULTATION ---
DATE: 09/26/2019 REASON FOR REFERRAL: Noncardiac chest pain. HISTORY OF PRESENT ILLNESS: This is a 69-year-old female who we have seen in the past. She had an EGD in February 2019 with findings of gastritis, gastric outlet obstruction and stricture was dilated. The patient reports onset of chest pain described as a heaviness and pressure. She did have cardiac workup here in the hospital that was reported as negative. She has been seen by Cardiology. She has also reported some elevation in her blood pressure recently. She had also noted some shortness of breath, dizziness and nausea. She had denied vomiting. No reported abdominal pain. She does have occasional constipation and uses MiraLAX as needed. She denies diarrhea. She has a history of iron-deficiency anemia and has followed with Dr. Weathers. She has received iron infusions here in the hospital. On admission her iron was 32 and ferritin was 10. She has also had reports of plans for a knee replacement by Dr. Sherwood in approximately 2 to 3 weeks. PAST MEDICAL HISTORY: Hypothyroidism, hypertension, history of peptic ulcer disease. History of gastrointestinal bleeding. Iron deficiency anemia. History of dysrhythmia. PAST SURGICAL HISTORY: Bilateral cataract surgery. Hysterectomy, bilateral carpal tunnel surgery, bilateral shoulder surgery, left hip replacement. Right knee replacement and history of gastric bypass in 2004. Cholecystectomy, breast biopsy, last EGD was in February 2019 that showed gastritis, gastric outlet obstruction and stricture dilated. ALLERGIES: Oxycodone shortness of breath. Phenergan unknown reaction. Aspirin unable to take due to bleeding ulcers. HOME MEDICATIONS: 1. Vitamin B12, calcium and B6 daily. 2. Iron 65 mg daily. 3. Eastern 5/325 as needed. 4. Synthroid daily. 5. Protonix 40 mg daily. 6. Paxil 40 mg daily. SOCIAL HISTORY: Quit tobacco use. No reported alcohol use. FAMILY HISTORY: Father had pancreatic cancer and heart disease. Mother had arthritis. REVIEW OF SYSTEMS: Per history of present illness. PHYSICAL EXAMINATION: Vital Signs: Temperature 98.1 degrees, pulse 60, respirations 20, blood pressure 147/72. General: Patient is awake and alert in no acute distress. HEENT: Normocephalic. Atraumatic. Pupils equal, round, reactive to light. Sclerae nonicteric. Respiratory: Lung sounds essentially clear. Cardiovascular: Regular rate and rhythm. Abdomen: Nontender, soft, positive bowel sounds. Neurologic: Cranial nerves 2-12 grossly intact. DIAGNOSTIC RESULTS: Laboratory: Hematology, WBC 5.07. Hemoglobin 9.5, hematocrit 31.8. MCV 84.1, platelet 342,000. Coagulation: Pro time 13.8, INR is 1.05, PTT 28.2. Chemistry: Sodium 143, potassium 3.9, chloride 107, CO2 25, BUN 13, creatinine 0.6, glucose 96. Iron 32, TIBC 371 % saturation 9. Ferritin 10. She has received IV iron infusion since admission. ASSESSMENT AND PLAN: 1. Atypical chest pain, cardiac workup has been negative. 2. History of gastric bypass. 3. Iron-deficiency anemia. Has received iron infusions. 4. Hypertension. Has improved since admission. 5. History of osteoarthritis. There are plans for possible left knee replacement in the near future. 6. History of gastric ulcers and history of gastrointestinal bleeding. Patient had an EGD in February 2019 that showed gastritis, gastric outlet obstruction and stricture was dilated. 7. We will proceed with gastrointestinal workup since her cardiac workup was negative. We will proceed with EGD today. I have discussed the procedure along with benefits and risks with the patient. She wishes to proceed. Further plans to be made according to findings. Continue proton pump inhibitors. I have discussed this case with Dr. Bach. Thank you for this consultation. Dictated by BRIAN Fajardo for Tra Bach MD cc: BRIAN Ordoñez MD Amit V. Vora, MD
[2019-09-26] MEDS ORDERED: DIPRIVAN 1% ONE ×2 (12:08→13:19)
[2019-09-26] MEDS ORDERED: XYLOCAINE-MPF 2% ONE (12:09)
--- NOTE | 2019-09-26 13:33 | ENDOSCOPY OPERATIVE NOTE ---
[facility] ENDOSCOPY OPERATIVE NOTE , EGD PROCEDURE REPORT EXAM DATE: 09/26/2019 PATIENT NAME: Crissy Sahni ATTENDING: Tra Bach MD MR#: [id number] REFERRING PHYSICIAN: Lm Tong MD : 1950 CASE#: [id number] STATUS: inpatient INDICATIONS: The patient is a 69 yr old female here for an EGD due to Chest pain and heartburn. PROCEDURE PERFORMED: EGD, diagnostic MEDICATIONS: Per Anesthesia CONSENT: The patient understands the risks and benefits of the procedure and understands that these r isks include, but are not limited to: sedation, allergic reaction, infection, perforation and/or bleeding. Alternative means of evaluation and treatment include, among others: physical exam, x-rays, and/or surgical intervention. The patient elects to proceed with this endoscopic procedure. DESCRIPTION OF PROCEDURE: During intra-op preparation period all mechanical and medical equipment was checked for proper function. Hand hygiene and appropriate measures for infection prevention was taken. After the risks, benefits and alternatives of the procedure were thoroughly explained, Informed consent was verified, confirmed and timeout was successfully executed by the treatment team. The patient was anesthetized with topical anesthesia and the OQ04-i11 ([id number]) endoscope was introduced through the mouth and advanced to the proximal jejunum. Retroflex ion was performed in the stomach and revealed no abnormalities. The gastroscope was then slowly withdrawn and removed. ESOPHAGUS: The mucosa of the esophagus appeared normal. STOMACH: There was a moderate amount of residual food in the gastric body. Due to the residual food, complete mucosal examination could not be performed. A gastric bypass was found in the gastric body. The area was c ongested. Inflammation at the site was seen. Ulceration was seen at the site. DUODENUM: Did not exanine. JEJUNUM / ILEUM: Two non-bleeding, round, deep and clean-based ulcers ranging between 5-9mm in size w ith surrounding edema were found at the gastro-jejunal anastomosis. ADVERSE EVENTS: There were no complications. IMPRESSIONS: 1. The mucosa of the esophagus appeared normal 2. Food residue in the gastric body 3. Gastric bypass was found in the gastric body 4. Did not exanine 5. Two ranging between 5-9mm in size ulcers were found at the gastro-jejunal anastomosis RECOMMENDATIONS: 1. Omeprazole (Prilosec) 40mg PO daily 2. Start taking the following medications as prescribed: Carafate. 3. Resume pre-procedure medications 4. Avoid non-steroid anti-inflammatory drugs 5. Transfer to floor 6. Follow up with referring physician 7. Follow-up with Dr. Bach in 8 week(s) Tra Bach MD eSigned: Tra Bach MD 09/26/2019 1:33 PM CPT CODES: 99918 Upper gastrointestinal endoscopy including esophagus, stomach, and either the du odenum and/or jejunum as appropriate; diagnostic, with or without collection of specimen(s) by brushing or washing (separate procedure) ICD CODES: 787.1 Heartburn 935.2 Foreign body in stomach V45.86 Bariatric surgery status The ICD and CPT codes recommended by this software are interpretations from the data that the [facility] staff has captured with the software. The verification of the translation of this report to the ICD and CPT co paulino and modifiers is the sole responsibility of the health care institution and practicing physician where this report was generated. [employer] will not be held responsible for the validity of the ICD and CPT codes i ncluded on this report. A assumes no liability for data contained or not contained herein. CPT is a registered tra [employer]ark of the [employer]. PATIENT NAME: Crissy Sahni MR#: [id number]
[2019-09-26] MEDS ORDERED: CARAFATE LIQUID PO SCH (17:00)
--- NOTE | 2019-09-26 17:47 | DISCHARGE SUMMARY ---
ADMISSION DATE: 09/23/2019 DISCHARGE DATE: Ms Sahni was admitted with severe retrosternal chest pain. LABORATORY DATA: In the hospital chest x-ray was negative exam. EKG revealed regular sinus rhythm. It was normal EKG. The EKG was repeated and it was again unremarkable. Myocardial perfusion scan was performed which revealed nonspecific electrocardiographic response to a walking Lexiscan protocol with a normal hemodynamic response. Normal post-stress myocardial perfusion scan. No significant evidence of pharmacologically induced myocardial ischemia. Normal left ventricular systolic function with EF of 81%. Echocardiogram revealed EF of 55 to 60 percent. Left ventricle function was normal. Pulmonary venous flow was normal. LABORATORY DATA: Revealed normal urinalysis. Chemistry was normal. Ferritin was 225 somewhat elevated, unsaturated iron binding capacity was 339, iron was 32, hemoglobin was 10.2 came down to 9.5. INR was 1.05. Electrolytes were normal, BUN, creatinine was normal. COURSE IN THE HOSPITAL: After she was admitted she had a consultation with Dr. Gresham who did a Lexiscan was normal. She had a consult with Dr. Weathers for anemia who wants to see her in the office and had a consult with Dr. Bach who did EGD and found that she had 2 ulcers were 5 to 9 mm in size found at the gastrojejunal anastomosis. She was placed on Carafate as well as omeprazole 40 mg daily. She is already taking pantoprazole so I asked her to take 2 of the 40 mg pantoprazole. She is feeling better. We are going to discharge her today with a prescription of Carafate 1 g t.i.d., pantoprazole 40 mg b.i.d., ramipril 5 mg b.i.d. I will see her in the office in about in about 2 to 3 weeks. cc: Lm Tong MD
[2019-09-26 17:52] VITALS: BP 170/70
--- NOTE | 2019-09-26 19:45 | HEMO/ONC CONSULTATION ---
DATE: 09/26/2019 REASON FOR CONSULTATION: Anemia. HISTORY OF PRESENT ILLNESS: Ms. Sahni is a 69-year-old female who came to the hospital 3 days ago with a complaint of his chest pain. While she was being worked up for chest pain, she was found to be anemic. Ms. Sahni has a history of gastric bypass in 2004. She has also had a history of gastrointestinal bleeding in February 2019. She also has a history of peptic ulcer disease. PAST MEDICAL HISTORY: 1. Hypothyroidism. 2. Hypertension. 3. Peptic ulcer disease. 4. Upper gastrointestinal bleeding. 5. Anemia. 6. History of tachydysrhythmia. PAST SURGICAL HISTORY: 1. Bilateral cataract surgery. 2. Total hysterectomy. 3. Bilateral carpal tunnel surgery. 4. Bilateral shoulder surgery. 5. Left hip replacement. 6. Right knee replacement. 7. Gastric bypass surgery in 2004. 8. Cholecystectomy. 9. Breast biopsy. SOCIAL HISTORY: The patient is a former smoker. She quit 20 years ago, but did smoke 1 pack a day for 19 years. She denies alcohol or illicit drug use. ALLERGIES: Percodan, Phenergan and aspirin. HOME MEDICATIONS: Ferrous sulfate, Dawson 5, Synthroid, Protonix, Paxil. PHYSICAL EXAMINATION: Vital Signs: Temperature 98.0, pulse rate 62, respiratory rate 23, blood pressure 170/70, O2 saturation 97% on room air. She is in 0/10 pain General: The patient is in no acute distress. HEENT: Sclerae are anicteric. PERRLA. Oral mucosa is normal. Cardiovascular: Normal S1, S2. Heart rate and rhythm regular. Respiratory: Lung sounds are clear to auscultation. Normal respiratory effort. Gastrointestinal: Abdomen: Soft, nontender, nondistended. Bowel sounds are present. Extremities: No evidence of lower extremity edema. Neurological: Awake, alert, and oriented x3. No focal motor deficits. LABORATORY: WBCs 5.07, hemoglobin 9.5, hematocrit 39.8, platelet count 342. ANC 2.76, ferritin 225. Vitamin B12 is 648, folate 7.3. ASSESSMENT NORMOCYTIC ANEMIA.: 1. History of gastric bypass surgery. 2. Folic acid deficiency. PLAN: We will evaluate the patient as an outpatient in the office. We will place her on multivitamins and folic acid as well as appropriate vitamins for a person with a history of gastric bypass. The patient was given 2 doses of IV iron while in the hospital. This should boost her levels. We will check her in 2 to 4 weeks in the office. Dictated by BRIAN Mike for Justo Weathers MD Patient seen and examined. As above. Patient admitted with chest pain. She was noted to be anemic. Evaluation revealed iron deficiency anemia. She has prior history of GI bleeding as well as gastric bypass. She is being treated with IV iron which I agree. We will continue to manage her anemia. Thank you for this consult. Justo Weathers M.D. cc: MD Lm Galicia MD MTDD
== END 2019-09-26 18:39 | disposition home or self-care (01) ==
LOC: ED 16:56 → SUATTDRO 21:29 → 3N 21:29 → INTOOBSV 21:29
PROVIDERS: ADMIT Internal Medicine; ATTEND Internal Medicine